=== PATIENT | female | born 2005 | race Caucasian/White ===

== ENCOUNTER → 2024-12-03 | Outpatient (CLI) | payer MEDICAID, SELFPAY ==
--- OUTSIDE RECORDS SUMMARY | 2024-10-17 09:13 | XMS RPT_ITS ---
Author Name Auto Generated Organization OHIP Care Team Providers Care Machine Setter Name Role Phone SAROJ MICHAUD Attending Unavailable KEILYMILENASAROJ M Primary Care Unavailable KEILY, SAROJ M Referring Unavailable KEILY, SAROJ M Primary Care Unavailable KEILYMILENA FLOWERSLENE M Attending Unavailable KEILY, SAROJ M Primary Care Unavailable KEILY, SAROJ M Referring Unavailable KEILY, SAROJ M Primary Care Unavailable KEILY, SAROJ M Referring Unavailable KEILY, SAROJ M Primary Care Unavailable EARLINE SMITH Referring Unavailable KEILY, SAROJ M Primary Care Unavailable MORAIMA AVALOS Attending Unavaila ble MILENA MICHAUDLENE M Referring Unavailable KEILY, SAROJ M Primary Care Unavailable EARLINE SMITH Attending Unavailable SRINI WHARTON Referring Unavail able MILENA MICHAUDLENE M Primary Care Unavailable KEILY, SAROJ M Primary Care Unavailable EARLINE SMITH Attending Unavailable PROBLEMS DATE TYPE CONDITION / CODE ATTENDING STATUS [facility] 09/03/2024 Active Follow Up / UNK(Unknown) EARLINE SMITH Active [facility] 07/17/2024 Active Syncope and jigar apse / R55(ICD-10) SAROJ MICHAUD Active [facility] 07/17/2024 Active Screening for li pid disorders / Z13.220(ICD-10) SAROJ MICHAUD Active [facility] 07/17/2024 Active Pain of toe of r ight foot / M79.674(ICD-10) SAROJ MICHAUD Active [facility] 07/17/2024 Active Wing[place] of toe / L84(ICD-10) ARNIE MICHAUD Active [facility] 07/06/2024 Active Menorrhagia with regular cycle / N92.0(ICD-10) NA Active [facility] 06/25/2024 Active Thyroid function study abnormality / R94.6(ICD-10) MORAIMA AVALOS Active [facility] 05/03/2024 Active Arthralgia of ri ght wrist / M25.531(ICD-10) NA [facility] 05/03/2024 Active Chronic pain of both knees / M25.561(ICD-10) NA Active [facility] 05/03/2024 Active Chronic pain of both knees / M25.562(ICD-10) NA [facility] 05/03/2024 Active Chronic pain of both knees / G89.29(ICD-10) [facility] 05/03/2024 Active Chronic bilatera l low back pain without sciatica / M54.50(ICD-10) [facility] 05/03/2024 Active Chronic bilatera l low back pain without sciatica / G89.29(ICD-10) NA [facility] 05/03/2024 Active Cold intolerance / R68.89(ICD-10) NA [facility] 05/03/2024 Active Fatigue, unspeci fied type / R53.83(ICD-10) NA [facility] 05/03/2024 Active Encounter for me reening for diabetes mellitus / Z13.1(ICD-10) [facility] 05/03/2024 Active Vitamin D defici ency / E55.9(ICD-10) NA [facility] 05/03/2024 Active Special screenin g examination for viral disease / Z11.59(ICD-10) NA [facility] 05/03/2024 Active Screening for HI V (human immunodeficiency virus) / Z11.4(ICD-10) NA [facility] 01/11/2024 Active Abnormal uterine bleeding (AUB) / N93.9(ICD-10) NA [facility] 01/11/2024 Active Dyspareunia, fem francesco / N94.10(ICD-10) NA [facility] 12/27/2023 Active Hemorrhage in ut erus / N93.9(ICD-10) NA [facility] PROCEDURES No Procedure Records Found RESULTS PROGRESS Observed: 10/17/2024 9:20 AM Status: COMPLETED Source: [facility] HNO ID: [id number] Author: JORGE A GARIBAY RN Service: ? Author Type: Registered Nurse Type: Progress Notes Filed: 10/18/2024 06:48 Note Text: UNIVERSAL PROTOCOL / SAFETY CHECKLIST Procedure to be performed: [facility]: TILT Sign in Communication: Completed Time Out: Team Confirms the Correct Patient, Correct Procedure, Correct Site and Site Marking, Correct Position (if applicable). Time: 09:35 STAFF: Adebayo Alanis Affirmation of Time Out: YES Sign Out Discussion: Completed Jorge A Garibay RN Orders placed 07/17/2024 by Saroj Michaud APRN CNP Allergies: Gluten Test done in consult with Saroj Michaud APRN CNP Procedure Start Time: 0940 Height 175.3 cm Weight 73.5 kg Patient fasting for 4 hours: Yes Support stockings taken off for procedure: Not applicable Pain Assessment: Patient states none Comfort Measures: Re-positioning and Added pillow for head/shoulders Pacemaker: No IV Placement: in by Jorge A Garibay RN Baseline: BP 104/65 HR 69 Pre-Max Tilt : 70 degrees 44 min BP 102/75 HR 123 Max Tilt: 70 degrees 45 min BP 100/71 HR 126 Note: Test was stopped due to end of protocol. See Final Report for Diagnosis. IV discontinued at 11:05 by Jorge A Garibay RN . Staff involved in procedure: Bella Stone RN. ; Jorge A Garibay RN Procedure Finish Time: 11:10 CNOV Observed: 10/17/2024 9:15 AM Status: COMPLETED Source: [facility] Office Visit (SYNCMN) ARMIDA PORRAS ([id number]) 3 F Date Time Provider Department 10/17/24 9:15 AM SYNCOPE OPD NURSE SYNCMN During your visit today, we recorded the following information about you: Jorge A Garibay RN 10/18/2024 6:48 AM Signed UNIVERSAL PROTOCOL / SAFETY CHECKLIST Procedure to be performed: [facility] Syncope and Autonomic Disorders: TILT Sign in Communication: Completed Time Out: Team Confirms the Correct Patient, Correct Procedure, Correct Site and Site Marking, Correct Position (if applicable). Time: 09:35 STAFF: Adebayo Alanis Affirmation of Time Out: YES Sign Out Discussion: Completed Jorge A Garibay RN Orders placed 07/17/2024 by Saroj Michaud APRN CNP Allergies: Gluten Test done in consult with Saroj Michaud APRN CNP Procedure Start Time: 939 Height 175.3 cm Weight 73.5 kg Patient fasting for 4 hours: Yes Support stockings taken off for procedure: Not applicable Pain Assessment: Patient states none Comfort Measures: Re-positioning and Added pillow for head/shoulders Pacemaker: No IV Placement: in by Jorge A Garibay RN Baseline: BP 104/65 HR 69 Pre-Max Tilt : 70 degrees 44 min BP 102/75 HR 123 Max Tilt: 70 degrees 45 min BP 100/71 HR 126 Note: Test was stopped due to end of protocol. See Final Report for Diagnosis. IV discontinued at 11:05 by Jorge A Garibay RN . Staff involved in procedure: Bella Stone RN. ; Jorge A Garibay RN Procedure Finish Time: 11:10 Allergies As of Date: 10/17/2024 Noted Allergy Reaction GLUTEN 10/10/2009 5 - Intolerance Date Reviewed: 09/03/2024 Reviewed by: Anthony Matthews MA - Fully Assessed Primary Visit Diagnosis:Syncope and collapse [R55] Order(s):SALINE LOCK DISCONTINUE [[id number]] Order #: [id number]: 1 INTERMITTENT PERIPHERAL DEVICE ([place]) [[id number]] Order #: [id number]: 1 Prescriptions as of 10/18/2024 - calcium phosphate dibas/vit D3 (VITAMIN D, WITH CALCIUM, ORAL) Take by mouth. - norgestimate 0.25 mg-ethinyl estradiol 35 mcg (SPRINTEC) 0.25-35 mg-mcg per tablet Take 1 tablet by mouth once daily. Problem List As Of Date: 10/17/2024 (None) Encounter Status:Closed by JORGE A GARIBAY on 10/18/24 PROGRESS Observed: 09/03/2024 2:47 PM Status: COMPLETED Source: [facility] Author: EARLINE SMITH APRN.CNM Service: ? Author Type: Roofing Apprentice Type: Progress Notes Filed: 09/16/2024 06:23 Note Text: CONTRACEPTION Armida Porras is a 19 year old who presents today for contraception. Patient's last menstrual period was 06/24/2024 (exact date).. HPI: Dysmenorrhea No Heavy menses No Irregular menses No Very happy with Sprintec and would like to continue. Decreased pain, decreased bleeding. Denies warning signs ACHES SUBJECTIVE Sexually active: Yes Smoking No Last PAP Method of control: oral contraceptives satisfactory Methods tried previously: oral contraceptives unsatisfactory Relevant Past Medical History: No relevant past medical history, Smoker NO, History of blood clots no, History of migraines no, History of CVA no, History of CAD no, History of hypertension no, History of abnormal vaginal bleeding no, History of liver disease no, History of diabetes no OB History Gravida0 Para0 Term0 Preterm0 AB0 Living0 SAB0 IAB0 Ectopic0 Multiple0 Live Births0 PAST MEDICAL HISTORY Diagnosis Date IBS (irritable bowel syndrome) No past surgical history on file. FAMILY HISTORY Problem Relation Age of Onset No Known Problems Mother No Known Problems Father No Known Problems Sister Breast Cancer Maternal Grandmother Cancer Maternal Grandfather Breast Cancer Paternal Grandmother Cancer Paternal Grandfather SOCIAL HISTORY Social History Tobacco Use Smoking status: Never Passive exposure: Never Smokeless tobacco: Never Vaping Use Vaping status: Never Used Substance Use Topics Alcohol use: Never Drug use: Never No past surgical history on file. Current Outpatient Medications Medication Sig magnesium citrate and oxide (MAGNESIUM CITRATE,MAG OXIDE ORAL) Take by mouth. (Patient not taking: Reported on 07/17/2024) calcium phosphate dibas/vit D3 (VITAMIN D, WITH CALCIUM, ORAL) Take by mouth. norgestimate 0.25 mg-ethinyl estradiol 35 mcg (SPRINTEC) 0.25-35 mg-mcg per tablet Take 1 tablet by mouth once daily. No current facility-administered medications for this visit. Allergies As of Date: 09/03/2024 Allergen Noted Reaction GLUTEN 10/10/2009 Intolerance Fully Assessed 07/17/2024 SENSITIVE EXAM: Sensitive exam not performed. OBJECTIVE: General Appearance: Well appearing, alert, in no acute distress, well-hydrated, well nourished. Skin: Color normal, Vascularity normal, No evidence of bleeding or bruising, No lesions noted, No edema, Temperature normal, Texture normal, Mobility and turgor normal, Nails normal without clubbing Neck: Supple, no adenopathy; thyroid symmetric, normal size, no bruits Lungs: clear to auscultation Heart: regular rate and rhythm Abdomen: soft, non-tender, no masses, no hepatosplenomegaly, and no lymphadenopathy ASSESSMENT/PLAN: 1. Encounter for surveillance of contraceptive pills - ICD9: V25.41, ICD10: Z30.41 (primary diagnosis) - discussed with patient on how to take OCP's. - counseled on benefits, risks and possible severe side effects of OCP's. - discussed need to use Condoms to help to prevent STD's including HIV etc. 2. Menorrhagia with regular cycle - ICD9: 626.2, ICD10: N92.0 -Much improved since starting Sprintec. Would like to continue. Earline Smith APRN.CNM CNOV Observed: 09/03/2024 2:45 PM Status: COMPLETED Source: [facility] Office Visit (OBGYWM) ARMIDA PORRAS ([id number]) 3 F Date Time Provider Department 09/03/24 2:45 PM EARLINE SMITH During your visit today, we recorded the following information about you: Blood pressure Weight Last Period 108/62 73.5 kg 08/16/24 Earline Smith APRN.CNM 09/16/2024 6:23 AM Signed CONTRACEPTION Armidamoises Preciadoyce is a 19 year old who presents today for contraception. Patient's last menstrual period was 06/24/2024 (exact date).. HPI: Dysmenorrhea No Heavy menses No Irregular menses No Very happy with Sprintec and would like to continue. Decreased pain, decreased bleeding. Denies warning signs ACHES SUBJECTIVE Sexually active: Yes Smoking No Last PAP Method of control: oral contraceptives satisfactory Methods tried previously: oral contraceptives unsatisfactory Relevant Past Medical History: No relevant past medical history, Smoker NO, History of blood clots no, History of migraines no, History of CVA no, History of CAD no, History of hypertension no, History of abnormal vaginal bleeding no, History of liver disease no, History of diabetes no OB History Gravida0 Para0 Term0 Preterm0 AB0 Living0 SAB0 IAB0 Ectopic0 Multiple0 Live Births0 PAST MEDICAL HISTORY Diagnosis Date IBS (irritable bowel syndrome) No past surgical history on file. FAMILY HISTORY Problem Relation Age of Onset No Known Problems Mother No Known Problems Father No Known Problems Sister Breast Cancer Maternal Grandmother Cancer Maternal Grandfather Breast Cancer Paternal Grandmother Cancer Paternal Grandfather SOCIAL HISTORY Social History Tobacco Use Smoking status: Never Passive exposure: Never Smokeless tobacco: Never Vaping Use Vaping status: Never Used Substance Use Topics Alcohol use: Never Drug use: Never No past surgical history on file. Current Outpatient Medications Medication Sig magnesium citrate and oxide (MAGNESIUM CITRATE,MAG OXIDE ORAL) Take by mouth. (Patient not taking: Reported on 07/17/2024) calcium phosphate dibas/vit D3 (VITAMIN D, WITH CALCIUM, ORAL) Take by mouth. norgestimate 0.25 mg-ethinyl estradiol 35 mcg (SPRINTEC) 0.25-35 mg-mcg per tablet Take 1 tablet by mouth once daily. No current facility-administered medications for this visit. Allergies As of Date: 09/03/2024 Allergen Noted Reaction GLUTEN 10/10/2009 Intolerance Fully Assessed 07/17/2024 SENSITIVE EXAM: Sensitive exam not performed. OBJECTIVE: General Appearance: Well appearing, alert, in no acute distress, well-hydrated, well nourished. Skin: Color normal, Vascularity normal, No evidence of bleeding or bruising, No lesions noted, No edema, Temperature normal, Texture normal, Mobility and turgor normal, Nails normal without clubbing Neck: Supple, no adenopathy; thyroid symmetric, normal size, no bruits Lungs: clear to auscultation Heart: regular rate and rhythm Abdomen: soft, non-tender, no masses, no hepatosplenomegaly, and no lymphadenopathy ASSESSMENT/PLAN: 1. Encounter for surveillance of contraceptive pills - ICD9: V25.41, ICD10: Z30.41 (primary diagnosis) - discussed with patient on how to take OCP's. - counseled on benefits, risks and possible severe side effects of OCP's. - discussed need to use Condoms to help to prevent STD's including HIV etc. 2. Menorrhagia with regular cycle - ICD9: 626.2, ICD10: N92.0 -Much improved since starting Sprintec. Would like to continue. Earline Smith APRN.CNM Allergies As of Date: 09/03/2024 Noted Allergy Reaction GLUTEN 10/10/2009 5 - Intolerance Date Reviewed: 09/03/2024 Reviewed by: Anthony Matthews MA - Fully Assessed Reason for Visit: Follow Up [171] Cmt: OCP - Sprintec Primary Visit Diagnosis:Encounter for surveillance of contraceptive pills [Z30.41] Other Visit Diagnosis:Menorrhagia with regular cycle [N92.0] Prescriptions as of 09/16/2024 - calcium phosphate dibas/vit D3 (VITAMIN D, WITH CALCIUM, ORAL) Take by mouth. - norgestimate 0.25 mg-ethinyl estradiol 35 mcg (SPRINTEC) 0.25-35 mg-mcg per tablet Take 1 tablet by mouth once daily. Problem List As Of Date: 09/03/2024 (None) Medications Discontinued During This Encounter Prescriptions - magnesium citrate and oxide (MAGNESIUM CITRATE,MAG OXIDE ORAL) (Discontinued) Reported on 07/17/2024 Encounter Status:Closed by EARLINE SMITH on 09/16/24 BAS METAB 1999 PNL SERPL Collected: 09/2024 11:28 AM Status: F Source: [facility] Order Comment: Specimen Type : BLOOD SPECIMEN Ordering Facility: [facility] Address: [address] [place] [address] TYPE CODE TESTS RESULT OUT OF RANGE REFERENCE UNITS LAB 2345-7(LOINC) Glucose SerPl-[facility] [address] 83 74-99 mg/dL Result Comment: The [place] Diabetes Association (ADA) provides guidance for cutoff values for fasting glucose and random glucose. The ADA defines fasting as no caloric intake for at least 8 hours. Fasting plasma glucose results between 100 to 125 mg/dL indicate increased risk for diabetes (prediabetes). Fasting plasma glucose results greater than or equal to 126 mg/dL meet the criteria for diagnosis of diabetes. In the absence of unequivocal hyperglycemia, results should be confirmed by repeat testing. In a patient with classic symptoms of hyperglycemia or hyperglycemic crisis, random plasma glucose results greater than or equal to 200 mg/dL meet the criteria for diagnosis of diabetes. Reference: Standards of Medical Care in Diabetes 2016, [place] [employer] Association. Diabetes Care. 2016.39(Suppl 1). LAB 3094-0(LOINC) BUN SerPl-mCnc 8 7-21 mg/ dL LAB 2160-0(LOINC) Creat SerPl-mCnc 0.96 0.58-0.96 mg/dL LAB 2951-2(LOINC) Sodium SerPl-sCnc 141 136-144 mmol/L LAB 2823-3(LOINC) Potassium SerPl-sCnc 4.4 3.7-5.1 mmol/L LAB 2075-0(LOINC) Chloride SerPl-sCnc 105 98-107 mmol/L LAB 2028-9(LOINC) CO2 SerPl-sCnc 25 22-30 mmo l/L LAB 81411-7(LOINC) Anion Gap SerPl-sCnc 11 8-15 mmol/L LAB 56017-1(LOINC) Calcium SerPl-mCnc 9.5 8.5-10.2 mg/dL LAB 21330-3(LOINC) Creatinine + eGFR Pnl SerPlBld 87 >=60 mL/min/1 .73m??? Result Comment: Estimated Gl omerular Filtration Rate (eGFR) is calculated using the 2020 CKD-EPI creatinine equation. This equation utilizes serum creatinine, sex, and age as parameters. The creatinine assay has traceable calibration to isotope dilution-mass spectrometry. Refer to KDIGO guidelines for clinical interpretation. In patients with unstable renal function, e.g. those with acute kidney injury, the eGFR may not accurately reflect actual GFR. Performed By: #### 84528-7, 16231-6 #### [facility] CLIA [id number] [address] [place], [place] [address], [place] [address] [place] LIPID 1996 PNL SERPL Collected: 025 11:28 AM Status: F Source: [facility] Order Comment: Specimen Type : BLOOD SPECIMEN Ordering Facility: [facility] Address: [address] [place] [address] TYPE CODE TESTS RESULT OUT OF RANGE REFERENCE UNITS LAB 2093-3(LOINC) Cholest SerPl-mCnc 152 <200 mg/dL Result Comment: <200 mg/dL, Desirable 200-239 mg/dL, Borderline high >239 mg/dL, High LAB 2571-8(LOINC) Trigl SerPl-mCnc 117 <150 mg/dL Result Comment: <150 mg/dL, Normal 150-199 mg/dL, Borderline high 200-499 mg/dL, High >499 mg/dL, Very high LAB 2085-9(LOINC) HDLc SerPl-mCnc 60 >39 mg/dL Result Comment: 40-59 mg/dL, Acceptable >59 mg/dL, High: Negative risk factor for coronary heart disease <40 mg/dL, Low: Positive risk factor for coronary heart disease LAB 2089-1(LOINC) LDLc SerPl-mCnc 71 <100 mg/dL Result Comment: <100 mg/dL, Optimal 100-129 mg/dL, Near optimal/above optimal 130-159 mg/dL, Borderline high 160-189 mg/dL, High >189 mg/dL, Very high Secondary prevention optimal LDL Cholesterol levels are recommended to be <70 mg/dL LDL cholesterol is calculated using the Kirkpatrick-NIH equation. LAB 95123-9(LOINC) NonHDLc SerPl-mCnc 92 <130 mg/dL Result Comment: <130 mg/dL, Optimal 130-159 mg/dL, Near optimal/above optimal 160-189 mg/dL, Borderline high 190-219 mg/dL, High >219 mg/dL, Very high Secondary prevention optimal non HDL Cholesterol levels are recommended to be <100 mg/dL LAB 08143-8(LOINC) VLDLc SerPl Calc-mCnc 18 <30 mg/dL LAB 9830-1(LOINC) Cholest/HDLc SerPl 2.53 <5.10 LAB 48003-8(LOINC) LDLc/HDLc SerPl 1.18 <2.54 Result Comment: Reference: 1. National Cholesterol Education Program ATP III Guideline At-A-Glance Quick Desk Reference: National Heart, Lung, and Blood Shiro. National Institutes of Health. 2001: NIH Publication No. 01-3305. 2. An International Atherosclerosis Society position paper: global recommendations for the management of dyslipidemia: executive summary, Atherosclerosis. 2014: 232(2):410-413. Cut Points from the Lipid Research Clinic's Prevalence Study for ages 20 to 24 years can be located in the following reference: Expert Panel on Integrated Guidelines for Cardiovascular Health and Risk Reduction in Children and Adolescents: National Heart, Lung and Blood Shiro. Pediatrics. 2011:128(Suppl 5):M153-433. LAB FT FASTING TIME 10 hrs Performed By: #### 12801-3, 63512-6 #### [facility] CLIA [id number] [address] [place] [address] [place] DEPRECATED HGB A1C BLD Collected: 08/11 11:28 AM Status: F Source: [facility] Order Comment: Specimen Type : BLOOD SPECIMEN Ordering Facility: [facility] Address: [address] [place] [address] TYPE CODE TESTS RESULT OUT OF RANGE REFERENCE UNITS LAB 4548-4(LOINC) HbA1c MFr Bld 5.1 4.3-5.6 % Result Comment: [place] Jennifer betes Association guidelines indicate that patients with HgbA1c in the range 5.7-6.4% are at increased risk for development of diabetes, and intervention by lifestyle modification may be beneficial. HgbA1c greater or equal to 6.5% is considered diagnostic of diabetes. LAB 75966-3(LOINC) Est. average glucose Bld gHb Est-mCnc 100 mg/dL Result Comment: eAG: (Estima jocelynn average glucose) is a calculated value from HgbA1c and is office services representative of the average blood glucose level in the last 2-3 month period. Performed By: #### 04032-0 # ### [facility] CLIA [id number] [address] [place] [address] [place] CNPN Observed: 08/02/2024 12:00 AM Status: COMPLETED Source: [facility] Telephone (AGINTMLW) ARMIDA PORRAS ([id number]) 3 F Date Time Provider Department 08/02/24 SAROJ MICHAUD AGINTMLDangelo During your visit today, we recorded the following information about you: Karishma Muñoz LPN 08/02/2024 8:01 AM Signed ----- Message from Gloria Beasley sent at 07/31/2024 1:50 PM EDT ----- Regarding: FW: 4CINSTITUTE/INTM AG LODI/SAROJ MICHAUD/CALLBACK ----- Message ----- From: Thom Zambrano Sent: 07/31/2024 12:55 PM EDT To: Roxie Magaña [employer] Pool; # Subject: 4CCAREN/NIKKIM AG LODI/SAROJ MICHAUD/CA# Subject Line Format: Medicine / Saroj Michaud APRN.ON AIR HOST / [Issue] Select Department Name For Pool Routing Assistance: FAMP AG LODI => AG FAMP/INTM LODI APPT CTR [facility] [[id number]] Patient: Armida Porras Date of : 2005 Primary Care Provider: Saroj Michaud APRN.CHARLEEN The reason I am contacting the office is: Call Back - Patient is requesting a call back from Saroj Michaud, about heart monitor. Person calling if other than patient: n/a Best contact number: [phone] Thank you, Tohm Zambrano July 31, 2024 12:51 PM Karishma Muñoz LPN 08/02/2024 8:03 AM Signed Left message for pt to call office. Review of chart does not look like pt has had heart monitor done yet. Karishma Muñoz LPN Allergies As of Date: 08/02/2024 Noted Allergy Reaction GLUTEN 10/10/2009 5 - Intolerance Date Reviewed: 07/17/2024 Reviewed by: Saroj Michaud APRN.ON AIR HOST - Fully Assessed Reason for Visit: Returning Patient's Call [408] Prescriptions as of 08/02/2024 - magnesium citrate and oxide (MAGNESIUM CITRATE,MAG OXIDE ORAL) Take by mouth. - calcium phosphate dibas/vit D3 (VITAMIN D, WITH CALCIUM, ORAL) Take by mouth. - norgestimate 0.25 mg-ethinyl estradiol 35 mcg (SPRINTEC) 0.25-35 mg-mcg per tablet Take 1 tablet by mouth once daily. Problem List As Of Date: 08/02/2024 (None) Encounter Status:Closed by KARISHMA MUÑOZ on 08/02/24 CNOV Observed: 07/17/2024 11:00 AM Status: COMPLETED Source: [facility] Office Visit (AGINTMLW) CHIQUITA,ARMIDA ([id number]) 3 F Date Time Provider Department 07/17/24 11:00 AM SAROJ MICHAUD AGINTMLW During your visit today, we recorded the following information about you: Temperature Pulse Blood pressure 97.8 degrees 71/minute 106/58 Saroj Michaud APRN.ON AIR HOST 07/18/2024 7:22 AM Signed This note was created using NoteWriter. Subjective Armida Porras is a 19 year old female here today for follow up on last ov. She reported cold feeling and joint pains. Hx anxiety, OCD and IBS. She had labs which revealed thyroid antibody elevation of 10, vit D 23.7. She did see endo. Dx hashimotos thyroiditis. Syncope: - Recurrent syncope since age 6. - Recent increase in frequency, with three episodes in the past week. - Typically occurs once every couple of months; more frequent during periods of illness or stress. - Episodes last 30 seconds to 1 minute, with complete loss of consciousness. - Associated with stress, illness, or exertion; sometimes occurs randomly. - No prior workup due to lack of insurance. - Denies palpitations or seizure activity during episodes. - Experiences tinnitus and scotomas post-episode, resolving within 30 seconds. - Able to sit down before losing consciousness in most cases. 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 - Recent lab work reviewed by tree scout; no abnormalities noted. - Reports cold intolerance and fatigue; unsure if related to thyroid condition. Foot Wart: - Persistent wart on the foot, treated with cryotherapy twice without resolution. - Located between toes; causes discomfort when wearing enclosed shoes. ALLERGIES Allergen Reactions Gluten Intolerance Current Outpatient Medications Medication Sig Dispense Refill magnesium citrate and oxide (MAGNESIUM CITRATE,MAG OXIDE ORAL) Take by mouth. calcium phosphate dibas/vit D3 (VITAMIN D, WITH CALCIUM, ORAL) Take by mouth. norgestimate 0.25 mg-ethinyl estradiol 35 mcg (SPRINTEC) 0.25-35 mg-mcg per tablet Take 1 tablet by mouth once daily. 84 tablet 3 No current facility-administered medications for this visit. There is no problem list on file for this patient. PAST MEDICAL HISTORY Diagnosis Date IBS (irritable bowel syndrome) No past surgical history on file. Social History Tobacco Use Smoking status: Never Passive exposure: Never Smokeless tobacco: Never Vaping Use Vaping status: Never Used Substance Use Topics Alcohol use: Never Drug use: Never Family History Problem Relation Age of Onset No Known Problems Mother No Known Problems Father No Known Problems Sister Breast Cancer Maternal Grandmother Cancer Maternal Grandfather Breast Cancer Paternal Grandmother Cancer Paternal Grandfather Review of Systems Constitutional: Positive for chills and fatigue. Negative for activity change, appetite change, diaphoresis, fever and unexpected weight change. Respiratory: Negative for cough, shortness of breath and wheezing. Cardiovascular: Negative for chest pain, palpitations and leg swelling. Musculoskeletal: Positive for arthralgias and back pain. Wrist, knee Skin: See HPI Neurological: Positive for dizziness, syncope and light-headedness. Negative for headaches. See HPI Lightheaded during episodes Hematological: Does not bruise/bleed easily. Psychiatric/Behavioral: Negative for dysphoric mood. The patient is nervous/anxious. Anxiety at times with school Eyes: (+) visual disturbances Ears/Nose/Mouth/Throat: (+) tinnitus Cardiovascular: (-) palpitations Musculoskeletal: (+) arthralgias (right wrist, knees, low back) Neurological: (+) dizziness, (+) syncope Endocrine: (+) cold intolerance Skin: (+) wart (right foot) Objective 07/17/24 1120 07/17/24 1123 07/17/24 1125 07/17/24 1126 BP: 106/58 Orthostatic BP: 104/52 100/64 96/58 BP Site: Right Arm Right Arm Right Arm BP Position: Supine Sitting Standing BP Cuff Size: Regular Adult Regular Adult Regular Adult Pulse: 71 Orthostatic Pulse: 56 66 70 Temp: 36.6 ?C (97.8 ?F) SpO2: 98% LMP 06/24/2024 (Exact Date) Physical Exam Vitals and nursing note reviewed. Constitutional: General: She is not in acute distress. Appearance: She is not ill-appearing. HENT: Head: Normocephalic and atraumatic. Nose: No congestion or rhinorrhea. Cardiovascular: Rate and Rhythm: Normal rate and regular rhythm. Pulses: Normal pulses. Heart sounds: Normal heart sounds, S1 normal and S2 normal. No murmur heard. Pulmonary: Effort: Pulmonary effort is normal. No respiratory distress. Breath sounds: Normal breath sounds. No decreased breath sounds, wheezing, rhonchi or rales. Musculoskeletal: Right lower leg: No edema. Left lower leg: No edema. Skin: General: Skin is warm and dry. Neurological: Mental Status: She is alert and oriented to person, place, and time. Psychiatric: Mood and Affect: Mood normal. Behavior: Behavior normal. Thought Content: Thought content normal. Judgment: Judgment normal. Latest Ref Rng 05/03/2024 07/06/2024 WBC 3.70 - 11.00 k/uL 3.72 RBC 3.90 - 5.20 m/uL 4.66 Hemoglobin 11.5 - 15.5 g/dL 12.8 Hematocrit 36.0 - 46.0 % 39.1 MCV 80.0 - 100.0 fL 83.9 MCH 26.0 - 34.0 pg 27.5 MCHC 30.5 - 36.0 g/dL 32.7 RDW-CV 11.5 - 15.0 % 12.9 Platelet Count 150 - 400 k/uL 260 MPV 9.0 - 12.7 fL 10.1 Neut% % 51.0 Abs Neut (ANC) 1.45 - 7.50 k/uL 1.90 Lymph% % 37.9 Abs Lymph 1.00 - 4.00 k/uL 1.41 [place]% % 8.6 Abs [place] <0.87 k/uL 0.32 Eosin% % 2.2 Abs Eosin <0.46 k/uL 0.08 Baso% % 0.0 Abs Baso <0.11 k/uL <0.03 Immature Gran % % 0.3 IMMATURE GRANS (ABS) <0.10 k/uL <0.03 NRBC /100 WBC 0.0 Absolute nRBC <0.01 k/uL <0.01 DTYPE Auto Protein, Total 6.3 - 8.0 g/dL 7.0 Albumin 3.9 - 4.9 g/dL 4.5 Calcium 8.5 - 10.2 mg/dL 9.0 Bilirubin, Total 0.2 - 1.3 mg/dL 0.7 Alkaline Phosphatase 34 - 123 U/L 50 AST 13 - 35 U/L 15 ALT 7 - 38 U/L 18 Glucose 74 - 99 mg/dL 77 BUN 7 - 21 mg/dL 12 Creatinine 0.58 - 0.96 mg/dL 0.95 Sodium 136 - 144 mmol/L 139 Potassium 3.7 - 5.1 mmol/L 3.9 Chloride 98 - 107 mmol/L 103 CO2 22 - 30 mmol/L 26 Anion Gap 8 - 15 mmol/L 10 eGFR >=60 mL/min/1.73m? 88 HIV 12 Combo (Ag/Ab) Nonreactive Nonreactive HIV 1/2 Ab -- HIV Interpretation -- Iron 41 - 186 ug/dL 69 TIBC 232 - 386 ug/dL 459 (H) Transferrin Saturation 15.0 - 57.0 % 15.0 CRP <0.9 mg/dL <0.3 TSH 0.510 - 4.300 mIU/L 2.140 T3 79 - 165 ng/dL 98 Free T4 0.9 - 1.7 ng/dL 1.1 THYROID PEROXIDASE ANTIBODY <5.6 IU/mL 10.0 (H) Vitamin D 25 Hydroxy >=30.0 ng/mL 23.7 (L) Hep C Antibody IA Nonreactive Nonreactive Prolactin 4.4 - 33.8 ng/mL 23.2 Ferritin 14.7 - 205.1 ng/mL 15.4 WSR 0 - 20 mm/hr 2 Legend: (H) High (L) Low 1. Syncope and collapse (R55) - Recurrent episodes of syncope since age 6, with recent increase in frequency; episodes typically last 30 seconds to 1 minute with associated tinnitus and transient visual disturbances. - Ordered Tilt Table Test to evaluate for orthostatic hypotension or autonomic dysfunction. - Ordered 30-day event monitor to assess for potential cardiac arrhythmias. - Advised patient to maintain adequate hydration. 2. 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 - Educated patient on the chronic nature of the condition and the importance of annual monitoring. 3. Pain of toe of right foot (M79.674) 4. Wingina of toe (L84) - Exam reveals a lesion consistent with a corn on the right foot, likely due to pressure from footwear. - Referred to podiatry for further evaluation and removal. 5. Screening for lipid disorders (Z13.220) - Ordered fasting lipid panel. Saroj Michaud APRN.CHARLEEN I spent a total of 30 minutes on the date of the service which included preparing to see the patient, [id number] patient care, completing clinical documentation, obtaining and/or reviewing separately obtained history, performing a medically appropriate examination, counseling and educating the patient/family/caregiver, and ordering medications, tests, or procedures. Allergies As of Date: 07/17/2024 Noted Allergy Reaction GLUTEN 10/10/2009 5 - Intolerance Date Reviewed: 07/17/2024 Reviewed by: Saroj Michaud APRN.[employer] - Fully Assessed Reason for Visit: pots symptoms [Other] Cmt: Follow up from last appointment. Wart on right foot for the last month and a half Primary Visit Diagnosis:Syncope and collapse [R55] Other Visit Diagnoses:Noe's thyroiditis [E06.3] Pain of toe of right foot [M79.674] Wingina of toe [L84] Screening for lipid disorders [Z13.220] Order(s):TILT TABLE EVALUATION [56751DPA] Order #: [id number]: 1 EVENT MONITOR [6914920] Order #: [id number]: 1 LIPID PANEL, FASTING [SQLIPB] Order #: [id number] FUTURE BASIC METABOLIC PANEL [SQBMP] Order #: [id number] FUTURE HEMOGLOBIN A1C [WXSQV1V] Order #: [id number] FUTURE CONSULT TO PODIATRY [9034] Order #: [id number]: 1 FUTURE Prescriptions as of 07/18/2024 - magnesium citrate and oxide (MAGNESIUM CITRATE,MAG OXIDE ORAL) Take by mouth. - calcium phosphate dibas/vit D3 (VITAMIN D, WITH CALCIUM, ORAL) Take by mouth. - norgestimate 0.25 mg-ethinyl estradiol 35 mcg (SPRINTEC) 0.25-35 mg-mcg per tablet Take 1 tablet by mouth once daily. Problem List As Of Date: 07/17/2024 (None) Encounter Status:Closed by SAROJ MICHAUD on 07/18/24 PROGRESS Observed: 07/17/2024 11:00 AM Status: COMPLETED [facility] [id number] Author: SAROJ MICHAUD APRN.[facility] Service: ? Author Type: Nurse Practitioner Type: Progress Notes Filed: 07/18/2024 07:22 Note Text: This note was created using NoteWriter. Subjective Armida Porras is a 19 year old female here today for follow up on last ov. She reported cold feeling and joint pains. Hx anxiety, OCD and IBS. She had labs which revealed thyroid antibody elevation of 10, vit D 23.7. She did see endo. Dx hashimotos thyroiditis. Syncope: - Recurrent syncope since age 6. - Recent increase in frequency, with three episodes in the past week. - Typically occurs once every couple of months; more frequent during periods of illness or stress. - Episodes last 30 seconds to 1 minute, with complete loss of consciousness. - Associated with stress, illness, or exertion; sometimes occurs randomly. - No prior workup due to lack of insurance. - Denies palpitations or seizure activity during episodes. - Experiences tinnitus and scotomas post-episode, resolving within 30 seconds. - Able to sit down before losing consciousness in most cases. 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 - Recent lab work reviewed by tree [facility]; no abnormalities noted. - Reports cold intolerance and fatigue; unsure if related to thyroid condition. Foot Wart: - Persistent wart on the foot, treated with cryotherapy twice without resolution. - Located between toes; causes discomfort when wearing enclosed shoes. ALLERGIES Allergen Reactions Gluten Intolerance Current Outpatient Medications Medication Sig Dispense Refill magnesium citrate and oxide (MAGNESIUM CITRATE,MAG OXIDE ORAL) Take by mouth. calcium phosphate dibas/vit D3 (VITAMIN D, WITH CALCIUM, ORAL) Take by mouth. norgestimate 0.25 mg-ethinyl estradiol 35 mcg (SPRINTEC) 0.25-35 mg-mcg per tablet Take 1 tablet by mouth once daily. 84 tablet 3 No current facility-administered medications for this visit. There is no problem list on file for this patient. PAST MEDICAL HISTORY Diagnosis Date IBS (irritable bowel syndrome) No past surgical history on file. Social History Tobacco Use Smoking status: Never Passive exposure: Never Smokeless tobacco: Never Vaping Use Vaping status: Never Used Substance Use Topics Alcohol use: Never Drug use: Never Family History Problem Relation Age of Onset No Known Problems Mother No Known Problems Father No Known Problems Sister Breast Cancer Maternal Grandmother Cancer Maternal Grandfather Breast Cancer Paternal Grandmother Cancer Paternal Grandfather Review of Systems Constitutional: Positive for chills and fatigue. Negative for activity change, appetite change, diaphoresis, fever and unexpected weight change. Respiratory: Negative for cough, shortness of breath and wheezing. Cardiovascular: Negative for chest pain, palpitations and leg swelling. Musculoskeletal: Positive for arthralgias and back pain. Wrist, knee Skin: See HPI Neurological: Positive for dizziness, syncope and light-headedness. Negative for headaches. See HPI Lightheaded during episodes Hematological: Does not bruise/bleed easily. Psychiatric/Behavioral: Negative for dysphoric mood. The patient is nervous/anxious. Anxiety at times with school Eyes: (+) visual disturbances Ears/Nose/Mouth/Throat: (+) tinnitus Cardiovascular: (-) palpitations Musculoskeletal: (+) arthralgias (right wrist, knees, low back) Neurological: (+) dizziness, (+) syncope Endocrine: (+) cold intolerance Skin: (+) wart (right foot) Objective 07/17/24 1120 07/17/24 1123 07/17/24 1125 07/17/24 1126 BP: 106/58 Orthostatic BP: 104/52 100/64 96/58 BP Site: Right Arm Right Arm Right Arm BP Position: Supine Sitting Standing BP Cuff Size: Regular Adult Regular Adult Regular Adult Pulse: 71 Orthostatic Pulse: 56 66 70 Temp: 36.6 ?C (97.8 ?F) SpO2: 98% LMP 06/24/2024 (Exact Date) Physical Exam Vitals and nursing note reviewed. Constitutional: General: She is not in acute distress. Appearance: She is not ill-appearing. HENT: Head: Normocephalic and atraumatic. Nose: No congestion or rhinorrhea. Cardiovascular: Rate and Rhythm: Normal rate and regular rhythm. Pulses: Normal pulses. Heart sounds: Normal heart sounds, S1 normal and S2 normal. No murmur heard. Pulmonary: Effort: Pulmonary effort is normal. No respiratory distress. Breath sounds: Normal breath sounds. No decreased breath sounds, wheezing, rhonchi or rales. Musculoskeletal: Right lower leg: No edema. Left lower leg: No edema. Skin: General: Skin is warm and dry. Neurological: Mental Status: She is alert and oriented to person, place, and time. Psychiatric: Mood and Affect: Mood normal. Behavior: Behavior normal. Thought Content: Thought content normal. Judgment: Judgment normal. Latest Ref Rng 05/03/2024 07/06/2024 WBC 3.70 - 11.00 k/uL 3.72 RBC 3.90 - 5.20 m/uL 4.66 Hemoglobin 11.5 - 15.5 g/dL 12.8 Hematocrit 36.0 - 46.0 % 39.1 MCV 80.0 - 100.0 fL 83.9 MCH 26.0 - 34.0 pg 27.5 MCHC 30.5 - 36.0 g/dL 32.7 RDW-CV 11.5 - 15.0 % 12.9 Platelet Count 150 - 400 k/uL 260 MPV 9.0 - 12.7 fL 10.1 Neut% % 51.0 Abs Neut (ANC) 1.45 - 7.50 k/uL 1.90 Lymph% % 37.9 Abs Lymph 1.00 - 4.00 k/uL 1.41 [place]% % 8.6 Abs [place] <0.87 k/uL 0.32 Eosin% % 2.2 Abs Eosin <0.46 k/uL 0.08 Baso% % 0.0 Abs Baso <0.11 k/uL <0.03 Immature Gran % % 0.3 IMMATURE GRANS (ABS) <0.10 k/uL <0.03 NRBC /100 WBC 0.0 Absolute nRBC <0.01 k/uL <0.01 DTYPE Auto Protein, Total 6.3 - 8.0 g/dL 7.0 Albumin 3.9 - 4.9 g/dL 4.5 Calcium 8.5 - 10.2 mg/dL 9.0 Bilirubin, Total 0.2 - 1.3 mg/dL 0.7 Alkaline Phosphatase 34 - 123 U/L 50 AST 13 - 35 U/L 15 ALT 7 - 38 U/L 18 Glucose 74 - 99 mg/dL 77 BUN 7 - 21 mg/dL 12 Creatinine 0.58 - 0.96 mg/dL 0.95 Sodium 136 - 144 mmol/L 139 Potassium 3.7 - 5.1 mmol/L 3.9 Chloride 98 - 107 mmol/L 103 CO2 22 - 30 mmol/L 26 Anion Gap 8 - 15 mmol/L 10 eGFR >=60 mL/min/1.73m? 88 HIV 12 Combo (Ag/Ab) Nonreactive Nonreactive HIV 1/2 Ab -- HIV Interpretation -- Iron 41 - 186 ug/dL 69 TIBC 232 - 386 ug/dL 459 (H) Transferrin Saturation 15.0 - 57.0 % 15.0 CRP <0.9 mg/dL <0.3 TSH 0.510 - 4.300 mIU/L 2.140 T3 79 - 165 ng/dL 98 Free T4 0.9 - 1.7 ng/dL 1.1 THYROID PEROXIDASE ANTIBODY <5.6 IU/mL 10.0 (H) Vitamin D 25 Hydroxy >=30.0 ng/mL 23.7 (L) Hep C Antibody IA Nonreactive Nonreactive Prolactin 4.4 - 33.8 ng/mL 23.2 Ferritin 14.7 - 205.1 ng/mL 15.4 WSR 0 - 20 mm/hr 2 Legend: (H) High (L) Low 1. Syncope and collapse (R55) - Recurrent episodes of syncope since age 6, with recent increase in frequency; episodes typically last 30 seconds to 1 minute with associated tinnitus and transient visual disturbances. - Ordered Tilt Table Test to evaluate for orthostatic hypotension or autonomic dysfunction. - Ordered 30-day event monitor to assess for potential cardiac arrhythmias. - Advised patient to maintain adequate hydration. 2. 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 - Educated patient on the chronic nature of the condition and the importance of annual monitoring. 3. Pain of toe of right foot (M79.674) 4. Wingina of toe (L84) - Exam reveals a lesion consistent with a corn on the right foot, likely due to pressure from footwear. - Referred to podiatry for further evaluation and removal. 5. Screening for lipid disorders (Z13.220) - Ordered fasting lipid panel. Saroj Michaud APRN.CHARLEEN I spent a total of 30 minutes on the date of the service which included preparing to see the patient, [id number] patient care, completing clinical documentation, obtaining and/or reviewing separately obtained history, performing a medically appropriate examination, counseling and educating the patient/family/caregiver, and ordering medications, tests, or procedures. CBC W AUTO DIFF BLD Collected: 07/06/2024 12:02 PM S tatus: F Source: [facility] Order Comment: Specimen Type : BLOOD SPECIMEN Ordering Facility: [facility] Address: [address] [place] [address] TYPE CODE TESTS RESULT OUT OF RANGE REFERENCE UNITS LAB 6690-2(LOINC) WBC # Bld Auto 3.72 3.70-11.00 k/uL LAB 789-8(LOINC) RBC # Bld Auto 4.66 3.90-5.20 m/ uL LAB 718-7(LOINC) Hgb Bld-mCnc 12.8 11.5-15.5 g/dL LAB 4544-3(LOINC) Hct VFr Bld Auto 39.1 36.0-46.0 % LAB 787-2(LOINC) MCV RBC Auto 83.9 80.0-100.0 fL LAB 785-6(LOINC) MCH RBC Qn Auto 27.5 26.0-34.0 p g LAB 786-4([facility]) MCHC RBC Auto-mCnc 32.7 30.5-36.0 g/dL LAB 92828-4([facility]) RDW RBC-Rto 12.9 11.5-15.0 % LAB 777-3([facility]) Platelet # Bld Auto 260 150-400 k/uL LAB 04240-1([facility]) PMV Bld Auto 10.1 9.0-12.7 fL LAB 770-8([facility]) Neutrophils/leuk NFr Bld Auto 51.0 % LAB 751-8([facility]) Neutrophils # Bld Auto 1.90 1.45-7.50 k/uL LAB 736-9([facility]) Lymphocytes/leuk NFr Bld Auto 37.9 % LAB 731-0([facility]) Lymphocytes # Bld Auto 1.41 1.00-4.00 k/uL LAB 5905-5([facility]) Monocytes/leuk NFr Bld Auto 8.6 % LAB 742-7([facility]) Monocytes # Bld Auto 0.32 <0.87 k/uL LAB 713-8([facility]) Eosinophil/leuk NFr Bld Auto 2.2 % LAB 711-2([facility]) Eosinophil # Bld Auto 0.08 <0.46 k/uL LAB 706-2([facility]) Basophils/leuk NFr Bld Auto 0.0 % LAB 704-7([facility]) Basophils # Bld Auto <0.03 <0.11 k/uL LAB 26862-9([facility]) Imm Granulocytes/rosie k NFr Bld Auto 0.3 % LAB 26289-5([facility]) Imm Granulocytes # Bld Auto <0.03 <0.10 k/uL LAB 18972-3([facility]) nRBC/100 WBC Bld-Rto 0.0 /100 WBC LAB 771-6([facility]) nRBC # Bld Auto <0.01 <0.01 k/u L LAB 97530-0([facility]) Differential method Bld Auto Performed By: #### 70785-0, 4537-7 #### [facility] CLIA [id number] [address] [id number] [address] [place] ESR BLD QN WESTRGRN Collected: 07/07/19 12:02 PM Status: F Source: [facility] Comment: Specimen Type : BLOOD SPECIMEN Ordering Facility: [facility] Address: [address] [place] [address] TYPE CODE TESTS RESULT OUT OF RANGE REFERENCE UNITS LAB 4537-7(LOINC) ESR Bld Qn Westrgrn 2 0-20 mm/hr Performed By: #### 58480-6, 4537-7 #### [facility] CLIA [id number] [address] [place] [address] [place] IRON+TIBC PNL SERPL Collected: 07/07/19 12:02 PM Status: F Source: [facility] Comment: Specimen Type : BLOOD SPECIMEN Ordering Facility: [facility] Address: [address] [place] [address] TYPE CODE TESTS RESULT OUT OF RANGE REFERENCE UNITS LAB 2498-4(LOINC) Iron SerPl-mCnc 69 41-186 ug/dL LAB 2500-7(LOINC) TIBC SerPl-mCnc 459 High 232-386 ug/dL LAB 16767-6(LOINC) Iron/TIBC SerPl-sRto 15.0 15.0-57.0 % Performed By: #### 2842-3, 2 276-4, 99517-0 #### [facility] CLIA [id number] [address] [place] [address] [place] FERRITIN SERPL-MCNC Collected: 07/07/19 12:02 PM Status: F Source: [facility] Comment: Specimen Type : BLOOD SPECIMEN Ordering Facility: [facility] Address: [address] [place] [address] TYPE CODE TESTS RESULT OUT OF RANGE REFERENCE UNITS LAB 2276-4(LOINC) Ferritin SerPl-mCnc 15.4 14.7-205.1 ng/mL Performed By: #### 2842-3, 2 276-4, 76613-2 #### [facility] CLIA [id number] [address] [place] [address] PROLACTIN SERPL-MCNC Collected: 025 12:02 PM Status: F Source: [facility] Order Comment: Specimen Type : BLOOD SPECIMEN Ordering Facility: [facility] Address: [address] [place] [address] TYPE CODE TESTS RESULT OUT OF RANGE REFERENCE UNITS LAB 2842-3(LOINC) Prolactin SerPl-mCnc 23.2 4.4-33.8 ng/mL Result Comment: Prolactin te st is performed using the [employer] Electrochemiluminescence Immunoassay method. Results obtained with different methods or kits cannot be used interchangeably. Performed By: #### 2842-3, 2 276-4, 03537-6 #### [facility] CLIA [id number] [address] [place] [address] PROGRESS Observed: 06/25/2024 8:20 AM Status: COMPLETED Source: [facility] HNO ID: [id number] Author: MORAIMA AVALOS MD Service: ? Author Type: Physician Type: Progress Notes Filed: 06/25/2024 08:50 Note Text: [facility] Initial Clinic Visit Note CONSULTING PROVIDER: Saroj Michaud APRN. [employer] My final recommendations will be communicated back to the requesting provider by way of shared Medical record or a letter via [place] mail Subjective: Armida Porras is a 19 year old female presenting for abnormal thyroid labs She is accompanied by her room mate Although she could not initially tell why thyroid labs were drawn, after I discussed thyroid symptoms, she does report cold intolerance and irregular cycles She denied nipple discharge, along with cycle irregularity. Seeing OBGYN who is ordering labs No family hx of thyroid or autoimmune conditions known REVIEW OF SYSTEMS: 10 point ROS was reviewed and negative unless indicated in the HPI ALLERGIES: ALLERGIES Allergen Reactions Gluten Intolerance MEDICATIONS: Current Outpatient Medications on File Prior to Visit Medication Sig magnesium citrate and oxide (MAGNESIUM CITRATE,MAG OXIDE ORAL) Take by mouth. calcium phosphate dibas/vit D3 (VITAMIN D, WITH CALCIUM, ORAL) Take by mouth. norgestimate 0.25 mg-ethinyl estradiol 35 mcg (SPRINTEC) 0.25-35 mg-mcg per tablet Take 1 tablet by mouth once daily. No current facility-administered medications on file prior to visit. PAST MEDICAL HISTORY: PAST MEDICAL HISTORY Diagnosis Date IBS (irritable bowel syndrome) PAST SURGICAL HISTORY: History reviewed. No pertinent surgical history. FAMILY HISTORY: FAMILY HISTORY Problem Relation Age of Onset No Known Problems Mother No Known Problems Father No Known Problems Sister Breast Cancer Maternal Grandmother Cancer Maternal Grandfather Breast Cancer Paternal Grandmother Cancer Paternal Grandfather SOCIAL HISTORY: Social History Tobacco Use Smoking status: Never Passive exposure: Never Smokeless tobacco: Never Vaping Use Vaping status: Never Used Substance Use Topics Alcohol use: Never Drug use: Never PHYSICAL EXAM: BP 98/64 (BP Site: Right Arm, BP Position: Sitting, BP Cuff Size: Regular Adult) Pulse (!) 52 Temp 37 ?C (98.6 ?F) (Temporal Artery) Resp 12 Ht 175.3 cm (5' 9) Wt 72.5 kg (159 lb 12.8 oz) LMP 06/24/2024 (Exact Date) SpO2 99% BMI 23.60 kg/m? Last 3 Encounter Wt Readings: Date: Wt: 06/25/2024 72.5 kg (159 lb 12.8 oz) 05/03/2024 71.8 kg (158 lb 6.4 oz) 05/02/2024 71.8 kg (158 lb 6.4 oz) General: Alert and oriented x3, no acute distress Eyes: Anicteric sclera. Extraocular movements are intact. No lid lag or proptosis Neck supple, no cervical lymphadenopathy Thyroid: normal size, normal texture, no palpable nodules Lungs: Breathing unlabored on room air Heart regular rate and rhythm Musculoskeletal: Muscular strength intact, No joint swelling, deformity, or tenderness Neuro: Gait normal. Abdomen: deferred Extremities: without edema, no deformities, no treors Skin: no rashes/ erythema LAB: TSH Date Value Ref Range Status 05/03/2024 2.140 0.510 - 4.300 mIU/L Final Comment: If the patient is , TSH reference range varies by gestational period: First Trimester (weeks 9-12): 0.180-2.990 mIU/L Second Trimester: 0.110-3.980 mIU/L Third Trimester: 0.480-4.710 mIU/L Chandana Coates et al. A Practical Approach for the Verifications and Determination of Site- and Trimester-Specific Reference Intervals for Thyroid Function tests in . Thyroid, 2019:29:3:412-420. Nas Trejo, et al. 2017 Guidelines of the [place] [employer] for the Diagnosis and Management of Thyroid Disease during and the . Thyroid, 2017:27:3:315-389. Free T4 Date Value Ref Range Status 05/03/2024 1.1 0.9 - 1.7 ng/dL Final Latest Ref Rng 05/03/2024 TSH 0.510 - 4.300 mIU/L 2.140 T3 79 - 165 ng/dL 98 Free T4 0.9 - 1.7 ng/dL 1.1 THYROID PEROXIDASE ANTIBODY <5.6 IU/mL 10.0 (H) Legend: (H) High ASSESSMENT/PLAN: Noe's thyroiditis with Euthyroidism: I discussed that this is a type of autoimmune thyroid disease in which the immune system attacks and destroys the thyroid gland. Pathophysiology and natural course of the condition discussed. The thyroid helps set the rate of metabolism, which is the rate at which the body uses energy. Noe's, may in the long run, stop the gland from making enough thyroid hormones for the body to work the way it should. It is the most common thyroid disease in the [place] I also reviewed that we will not be able to predict when the thyroid function will become abnormal and hence suggested checking thyroid labs annually, or sooner if new symptoms concerning for hypothyroidism occur which include fatigue, depression, further weight gain, forgetfulness, muscle weakness, puffy face, dry skin and hair, constipation, muscle cramps, and increased menstrual flow. Some patients have major swelling of the thyroid gland in the front of the neck, called goiter. Reviewed her current symptoms are less likely due to thyroid and there is no indication for intervention She is seeing OBGYN who are evaluating irregular cycles. She is advised to return if her thyroid becomes abnormal in future if she or her PCPprefers her to see Endocrine for management Medical Decision Making: Problems: Moderate: New problem with uncertain prognosis Data: Unique test result(s) reviewed: 3+ Independent interpretation of test from other physician/QHCP Medical Decision Making Level: 4 - Moderate Moraima Avalos MD Endocrinology Associate Staff [facility] AND Surgery [facility] Endocrinology and Metabolism Shiro [phone] CNOV Observed: 06/25/2024 8:00 AM Status: COMPLETED Source: [facility] Office Visit (ENWSTR) ARMIDA PORRAS ([id number]) 3 F Date Time Provider Department 06/25/24 8:00 AM MORAIMA AVALOS ENWSTR During your visit today, we recorded the following information about you: Temperature Pulse Respiration Blood pressure 98.6 degrees 52/minute 12/minute 98/64 Weight Height Last Period 72.5 kg 1.753 m 06/24/24 Moraima Avalos MD 06/25/2024 8:50 AM Addendum [facility] Initial Clinic Visit Note CONSULTING PROVIDER: Saroj Michaud APRN. ON AIR HOST My final recommendations will be communicated back to the requesting provider by way of shared Medical record or a letter via [place] mail Subjective: Armida Porras is a 19 year old female presenting for abnormal thyroid labs She is accompanied by her room mate Although she could not initially tell why thyroid labs were drawn, after I discussed thyroid symptoms, she does report cold intolerance and irregular cycles She denied nipple discharge, along with cycle irregularity. Seeing OBGYN who is ordering labs No family hx of thyroid or autoimmune conditions known REVIEW OF SYSTEMS: 10 point ROS was reviewed and negative unless indicated in the HPI ALLERGIES: ALLERGIES Allergen Reactions Gluten Intolerance MEDICATIONS: Current Outpatient Medications on File Prior to Visit Medication Sig magnesium citrate and oxide (MAGNESIUM CITRATE,MAG OXIDE ORAL) Take by mouth. calcium phosphate dibas/vit D3 (VITAMIN D, WITH CALCIUM, ORAL) Take by mouth. norgestimate 0.25 mg-ethinyl estradiol 35 mcg (SPRINTEC) 0.25-35 mg-mcg per tablet Take 1 tablet by mouth once daily. No current facility-administered medications on file prior to visit. PAST MEDICAL HISTORY: PAST MEDICAL HISTORY Diagnosis Date IBS (irritable bowel syndrome) PAST SURGICAL HISTORY: History reviewed. No pertinent surgical history. FAMILY HISTORY: FAMILY HISTORY Problem Relation Age of Onset No Known Problems Mother No Known Problems Father No Known Problems Sister Breast Cancer Maternal Grandmother Cancer Maternal Grandfather Breast Cancer Paternal Grandmother Cancer Paternal Grandfather SOCIAL HISTORY: Social History Tobacco Use Smoking status: Never Passive exposure: Never Smokeless tobacco: Never Vaping Use Vaping status: Never Used Substance Use Topics Alcohol use: Never Drug use: Never PHYSICAL EXAM: BP 98/64 (BP Site: Right Arm, BP Position: Sitting, BP Cuff Size: Regular Adult) Pulse (!) 52 Temp 37 ?C (98.6 ?F) (Temporal Artery) Resp 12 Ht 175.3 cm (5' 9) Wt 72.5 kg (159 lb 12.8 oz) LMP 06/24/2024 (Exact Date) SpO2 99% BMI 23.60 kg/m? Last 3 Encounter Wt Readings: Date: Wt: 06/25/2024 72.5 kg (159 lb 12.8 oz) 05/03/2024 71.8 kg (158 lb 6.4 oz) 05/02/2024 71.8 kg (158 lb 6.4 oz) General: Alert and oriented x3, no acute distress Eyes: Anicteric sclera. Extraocular movements are intact. No lid lag or proptosis Neck supple, no cervical lymphadenopathy Thyroid: normal size, normal texture, no palpable nodules Lungs: Breathing unlabored on room air Heart regular rate and rhythm Musculoskeletal: Muscular strength intact, No joint swelling, deformity, or tenderness Neuro: Gait normal. Abdomen: deferred Extremities: without edema, no deformities, no treors Skin: no rashes/ erythema LAB: TSH Date Value Ref Range Status 05/03/2024 2.140 0.510 - 4.300 mIU/L Final Comment: If the patient is , TSH reference range varies by gestational period: First Trimester (weeks 9-12): 0.180-2.990 mIU/L Second Trimester: 0.110-3.980 mIU/L Third Trimester: 0.480-4.710 mIU/L Chandana Coates et al. A Practical Approach for the Verifications and Determination of Site- and Trimester-Specific Reference Intervals for Thyroid Function tests in . Thyroid, 2019:29:3:412-420. Nas Trejo et al. 2017 Guidelines of the [place] Thyroid Association for the Diagnosis and Management of Thyroid Disease during and the . Thyroid, 2017:27:3:315-389. Free T4 Date Value Ref Range Status 05/03/2024 1.1 0.9 - 1.7 ng/dL Final Latest Ref Rng 05/03/2024 TSH 0.510 - 4.300 mIU/L 2.140 T3 79 - 165 ng/dL 98 Free T4 0.9 - 1.7 ng/dL 1.1 THYROID PEROXIDASE ANTIBODY <5.6 IU/mL 10.0 (H) Legend: (H) High ASSESSMENT/PLAN: Noe's thyroiditis with Euthyroidism: I discussed that this is a type of autoimmune thyroid disease in which the immune system attacks and destroys the thyroid gland. Pathophysiology and natural course of the condition discussed. The thyroid helps set the rate of metabolism, which is the rate at which the body uses energy. Noe's, may in the long run, stop the gland from making enough thyroid hormones for the body to work the way it should. It is the most common thyroid disease in the [place] I also reviewed that we will not be able to predict when the thyroid function will become abnormal and hence suggested checking thyroid labs annually, or sooner if new symptoms concerning for hypothyroidism occur which include fatigue, depression, further weight gain, forgetfulness, muscle weakness, puffy face, dry skin and hair, constipation, muscle cramps, and increased menstrual flow. Some patients have major swelling of the thyroid gland in the front of the neck, called goiter. Reviewed her current symptoms are less likely due to thyroid and there is no indication for intervention She is seeing OBGYN who are evaluating irregular cycles. She is advised to return if her thyroid becomes abnormal in future if she or her PCPprefers her to see Endocrine for management Medical Decision Making: Problems: Moderate: New problem with uncertain prognosis Data: Unique test result(s) reviewed: 3+ Independent interpretation of test from other physician/QHCP Medical Decision Making Level: 4 - Moderate Moraima Avalos MD Endocrinology Associate Staff [facility] Surgery [facility] Endocrinology and Metabolism Shiro [phone] Moraima Avalos MD 06/25/2024 8:31 AM Signed Please check thyrpoid function tests annually or sooner if new symptoms appear Focusing on healthy lifestyle can be helpful overall. Selenium might be beneficial in some cases to avoid progression Referring Provider: SAROJ MICHAUD [[id number]] Allergies As of Date: 06/25/2024 Noted Allergy Reaction GLUTEN 10/10/2009 5 - Intolerance Date Reviewed: 06/25/2024 Reviewed by: Sasha Fuller MA - Fully Assessed Reason for Visit: Thyroid Problem [110] Cmt: Reporting cold intolerance,fatigue Visit Diagnoses:Thyroid function study abnormality [R94.6] Cold intolerance [R68.89] Fatigue, unspecified type [R53.83] Order(s):CONSULT TO ENDOCRINOLOGY [9004] Order #: [id number]: 1 Prescriptions as of 06/25/2024 - magnesium citrate and oxide (MAGNESIUM CITRATE,MAG OXIDE ORAL) Take by mouth. - calcium phosphate dibas/vit D3 (VITAMIN D, WITH CALCIUM, ORAL) Take by mouth. - norgestimate 0.25 mg-ethinyl estradiol 35 mcg (SPRINTEC) 0.25-35 mg-mcg per tablet Take 1 tablet by mouth once daily. Problem List As Of Date: 06/25/2024 (None) Other instructions from your clinician: Please check thyrpoid function tests annually or sooner if new symptoms appear Focusing on healthy lifestyle can be helpful overall. Selenium might be beneficial in some cases to avoid progression Encounter Status:Closed by MORAIMA AVALOS on 06/25/24 THYROID PEROXIDASE ANTIBODY Collected: 05/03/2024 4:0 8 PM Status: F Source: [facility] Order Comment: Specimen Type : BLOOD SPECIMEN Ordering Facility: [facility] Address: [address] [place] [address] TYPE CODE TESTS RESULT OUT OF RANGE REFERENCE UNITS LAB 8099-4(LOINC) Thyroperoxidase Ab SerPl-aCnc 10.0 High <5.6 IU/mL Result Comment: Thyroid Fernandez xidase Antibody test is used as an aid in diagnosis of autoimmune thyroid disease. Clinical correlation is required. Performed By: #### MICRO ### # [facility] CLIA [id number] [address] [place] [address] OF [place] COMP METAB 2000 PNL SERPL Collected: 4:08 PM Status: F Source: [facility] Order Comment: Specimen Type : BLOOD SPECIMEN Ordering Facility: [facility] Address: [address], [place] [id number] TYPE CODE TESTS RESULT OUT OF RANGE REFERENCE UNITS LAB 2885-2(LOINC) Prot SerPl-mCnc 7.0 6.3-8.0 g/dL LAB 1751-7(LOINC) Albumin SerPl-mCnc 4.5 3.9-4.9 g/dL LAB 42456-4(LOINC) Calcium SerPl-mCnc 9.0 8.5-10.2 mg/dL LAB 1975-2(LOINC) Bilirub SerPl-mCnc 0.7 0.2-1.3 mg/dL LAB 6768-6(LOINC) ALP SerPl-cCnc 50 34-123 U/L LAB 58142-8(LOINC) AST SerPl w P-5'-P-cCnc 15 13-35 U/L LAB 1743-4(LOINC) ALT SerPl w P-5'-P-cCnc 18 7-38 U/L LAB 2345-7(LOINC) Glucose SerPl-mCnc 77 74-99 mg/dL Result Comment: The [place] Diabetes Association (ADA) provides guidance for cutoff values for fasting glucose and random glucose. The ADA defines fasting as no caloric intake for at least 8 hours. Fasting plasma glucose results between 100 to 125 mg/dL indicate increased risk for diabetes (prediabetes). Fasting plasma glucose results greater than or equal to 126 mg/dL meet the criteria for diagnosis of diabetes. In the absence of unequivocal hyperglycemia, results should be confirmed by repeat testing. In a patient with classic symptoms of hyperglycemia or hyperglycemic crisis, random plasma glucose results greater than or equal to 200 mg/dL meet the criteria for diagnosis of diabetes. Reference: Standards of Medical Care in Diabetes 2016, [place] Diabetes Association. Diabetes Care. 2016.39(Suppl 1). LAB 3094-0(LOINC) BUN SerPl-mCnc 12 7-21 mg/ dL LAB 2160-0(LOINC) Creat SerPl-mCnc 0.95 0.58-0.96 mg/dL LAB 2951-2(LOINC) Sodium SerPl-sCnc 139 136-144 mmol/L LAB 2823-3(LOINC) Potassium SerPl-sCnc 3.9 3.7-5.1 mmol/L LAB 2075-0(LOINC) Chloride SerPl-sCnc 103 98-107 mmol/L LAB 8-9(LOINC) CO2 SerPl-sCnc 26 22-30 mmo l/L LAB 67922-9(LOINC) Anion Gap SerPl-sCnc 10 8-15 mmol/L LAB 75938-6(LOINC) Creatinine + eGFR Pnl SerPlBld 88 >=60 mL/min/1. 73m??? Result Comment: Estimated Gl omerular Filtration Rate (eGFR) is calculated using the 2020 CKD-EPI creatinine equation. This equation utilizes serum creatinine, sex, and age as parameters. The creatinine assay has traceable calibration to isotope dilution-mass spectrometry. Refer to KDIGO guidelines for clinical interpretation. In patients with unstable renal function, e.g. those with acute kidney injury, the eGFR may not accurately reflect actual GFR. Performed By: #### 3016-3, 2 4322-10, 1987-07 #### [facility] CLIA [id number] [address] [place] [address] [facility] CRP SERPL-MCNC Collected: 05/03/2024 4:08 PM Status: F Source: [facility] Order Comment: Specimen Type : BLOOD SPECIMEN Ordering Facility: [facility] Address: [address] [place] [address] TYPE CODE TESTS RESULT OUT OF RANGE REFERENCE UNITS LAB 1987-([facility]) CRP SerPl-mCnc <0.3 <0.9 mg/dL Performed By: #### 3016-3, 2 8, 1987-07 #### [facility] CLIA [id number] [address] [place] [address] [facility] TSH SERPL-ACNC Collected: 4:08 PM Status: F Source: [facility] Order Comment: Specimen Type : BLOOD SPECIMEN Ordering Facility: [facility] Address: [address] [place] [address] TYPE CODE TESTS RESULT OUT OF RANGE REFERENCE UNITS LAB 3016-3(LOINC) TSH SerPl-aCnc 2.140 0.510-4.300 mIU/L Result Comment: If the patie nt is , TSH reference range varies by gestational period: First Trimester (weeks 9-12): 0.180-2.990 mIU/L Second Trimester: 0.110-3.980 mIU/L Third Trimester: 0.480-4.710 mIU/L Chandana Coates et al. A Practical Approach for the Verifications and Determination of Site- and Trimester-Specific Reference Intervals for Thyroid Function tests in . Thyroid, 2019:29:3:412-420. Nas E, et al. 2017 Guidelines of the [place] Thyroid Association for the Diagnosis and Management of Thyroid Disease during and the . Thyroid, 2017:27:3:315-389. Performed By: #### 3016-3, 2 4323-8, 1987- #### [facility] CLIA [id number] [address] [place] [address] [facility] T4 FREE SERPL-MCNC Collected: 05/03/2024 4:08 PM Sta tus: F Source: [facility] Order Comment: Specimen Type : BLOOD SPECIMEN Ordering Facility: [facility] Address: [address] [place] [address] TYPE CODE TESTS RESULT OUT OF RANGE REFERENCE UNITS LAB 3024-7(LOINC) T4 Free SerPl-mCnc 1.1 0.9-1.7 ng/dL Performed By: #### 3053-6, 3 #### [facility] CLIA [id number] [address] [place] [address] T3 SERPL-MCNC Collected: 05/03/2024 4:08 PM Status: F Source: [facility] Order Comment: Specimen Type : BLOOD SPECIMEN Ordering Facility: [facility] Address: [address] [place] [address] TYPE CODE TESTS RESULT OUT OF RANGE REFERENCE UNITS LAB 3053-6(LOINC) T3 SerPl-mCnc 98 79-165 ng/d L Performed By: #### 3053-6, 3 024-7 #### [facility] CLIA [id number] [address] HIV1+2 AB SERPL QL IA Collected: 2024 4:08 PM Status: F Source: [facility] Order Comment: Specimen Type : BLOOD SPECIMEN Ordering Facility: [facility] Address: [address] [place] [address] TYPE CODE TESTS RESULT OUT OF RANGE REFERENCE UNITS LAB 47892-1(LOINC) HIV 1+2 Ab+HIV1 p24 Ag SerPl Ql IA Nonreactive Nonreactive Result Comment: [place] Rev. Co de 3701.243(E): This information has been disclosed to you from confidential records protected from disclosure by state law. ???You shall make no further disclosure of this information without the specific, written, and informed release of the individual to whom it pertains or as otherwise permitted by state law. A general authorization for the release of medical or other information is not sufficient for the purpose of the release of HIV test results or diagnoses. Test methodology for this assay has moved from Siemens Centaur XP to Nimiaas 8000 effective December 08, 2021. Please note there may be a change in the reporting units and/or reference range. LAB 72192-4(LOINC) HIV 1 AND 2 Ab SerPlBld IA.rapid Result Comment: Test not ind icated. LAB 78363-8(LOINC) HIV IA algorithm interp SerPlBld-Imp Result Comment: No evidence of HIV-1 or HIV-2 infection. Should recent infection be suspected, repeat testing may be considered 2-3 weeks after this draw. Performed By: #### 17302-4 # ### [facility] CLIA [id number] [address] 25([place])D3 SERPL-MCNC Collected: 05/03/19 4:08 PM Status: F Source: [facility] Order Comment: Specimen Type : BLOOD SPECIMEN Ordering Facility: [facility] Address: [address] [place] [address] TYPE CODE TESTS RESULT OUT OF RANGE REFERENCE UNITS LAB 1989-3(LOINC) 25([place])D3 SerPl-mCnc 23.7 Low >=30.0 ng/mL Result Comment: Classificati on of 25 [place] Vitamin D status: Deficiency: <= 20.0 ng/ml. Insufficiency: 21.0-29.0 ng/ml. Sufficiency: >= 30.0 ng/ml. Performed By: #### 1989-3 ## ## [facility] CLIA [id number] [address] HCV AB SER QL Collected: 4:08 PM Status: F Source: [facility] Order Comment: Specimen Type : BLOOD SPECIMEN Ordering Facility: [facility] Address: [address] [place] [address] TYPE CODE TESTS RESULT OUT OF RANGE REFERENCE UNITS LAB 74952-1([facility]) HCV Ab Ser Ql Nonreactive Nonreactive Result Comment: The result s uggests no evidence of active infection with Hepatitis C virus. Should recent infection be suspected, repeat testing may be considered 4- 6 weeks after this draw. Performed By: #### 83653-7 # ### [facility] CLIA [id number] [address] PROGRESS Observed: 05/03/2024 2:40 PM Status: COMPLETED Source: [facility] HNO ID: [id number] Author: SAROJ MICHAUD APRN.ON AIR HOST Service: ? Author Type: Nurse Practitioner Type: Progress Notes Filed: 05/06/2024 19:49 Note Text: This note was created using Stepcase. Subjective Armida Porras is a 19 year old female here today for multiple complaints. She is here with her roommate. She has never been seen here. No PCP. She complains of joint pain, always cold, stomach pains. Cold feeling: She reports she has always been cold. States it has worsened as she gets older. She reports she always feels internally cold, not just her hands or feet. She reports her thyroid was checked last year and was normal. She reports having thyroid checked in the past and it was normal Joint pain: She reports having joint pains. States she has pain in right wrist (she is right handed), knees and low back. She reports she has had this for years. She reports they crack. She reports when she stands for long periods of time it starts hurting and states she will have some swelling in her knees. She has never seen anyone for this. She reports she noticed her wrist since HS. reports her knees and her back over the past 2 yrs. She reports playing volleyball for 6 ys in HS and grade school. She will take ibuprofen if her back is severe at worse it is 7/10. She did see BEHAVIORAL ANALYST yesterday on 05/02/24 for complaints of painful menses and discomfort. Increased bleeding and passing out. Reported not going to classes due to pain. LMP 04/08/24. She started her on oral control. Swab for BV and maxx and trich were completed. She ordered CBC and iron panel. Hx of anxiety, OCD. She reports she was on medications all throughout HS. She reports she has hx of anxiety. States she was going through testing for OCD. She reports she was on medications. She was seeing counselor through [facility] which is virtual. She reports she just stopped her medication. She reports she was on prozac in the past. Hx IBS: she reports she had been dx when Freshman in in 2019. She was previously on bentyl for this. She is constipation dominant. She reports her diet at college has made symptoms worse. She reports she also has gluten intolerance. Reports the college meal plan does not have much food she can eat. She reports coffee will help her bowels and relieve her constipation. She is requesting a note for her school to release her from the mandatory meal plan. ALLERGIES Allergen Reactions Gluten Intolerance Current Outpatient Medications Medication Sig Dispense Refill norgestimate 0.25 mg-ethinyl estradiol 35 mcg (SPRINTEC) 0.25-35 mg-mcg per tablet Take 1 tablet by mouth once daily. 84 tablet 3 No current facility-administered medications for this visit. There is no problem list on file for this patient. No past medical history on file. No past surgical history on file. Social History Tobacco Use Smoking status: Never Smokeless tobacco: Never Vaping Use Vaping status: Never Used Substance Use Topics Alcohol use: Never Drug use: Never Family History Problem Relation Age of Onset No Known Problems Mother No Known Problems Father No Known Problems Sister Breast Cancer Maternal Grandmother Cancer Maternal Grandfather Breast Cancer Paternal Grandmother Cancer Paternal Grandfather . Review of Systems Constitutional: Negative for activity change, appetite change, chills, diaphoresis, fatigue, fever and unexpected weight change. HENT: Negative for sinus pain, sore throat and trouble swallowing. Eyes: Negative for photophobia and visual disturbance. Respiratory: Negative for cough, chest tightness, shortness of breath and wheezing. Cardiovascular: Negative for chest pain, palpitations and leg swelling. Gastrointestinal: Positive for abdominal pain and constipation. Negative for blood in stool, diarrhea, nausea and vomiting. See HPI Endocrine: Positive for cold intolerance. Negative for heat intolerance, polydipsia, polyphagia and polyuria. Genitourinary: Negative for difficulty urinating, dysuria and hematuria. Musculoskeletal: Positive for arthralgias, back pain and joint swelling. Negative for myalgias and neck pain. See HPI Skin: Negative. Allergic/Immunologic: Positive for food allergies. Negative for environmental allergies and immunocompromised state. Gluten intolerance Neurological: Negative for dizziness, speech difficulty, weakness, light-headedness, numbness and headaches. Hematological: Negative. Does not bruise/bleed easily. She reports she has always bruised easily. Psychiatric/Behavioral: Negative for dysphoric mood and sleep disturbance. The patient is not nervous/anxious. Objective 05/03/24 1455 BP: 116/60 Pulse: 80 Resp: 18 SpO2: 99% Weight: 71.8 kg (158 lb 6.4 oz) Height: 175.3 cm (5' 9) Physical Exam Vitals and nursing note reviewed. Constitutional: General: She is not in acute distress. Appearance: Normal appearance. She is not ill-appearing or diaphoretic. HENT: Head: Normocephalic and atraumatic. Right Ear: External ear normal. Left Ear: External ear normal. Nose: Nose normal. No congestion or rhinorrhea. Mouth/Throat: Pharynx: No oropharyngeal exudate. Eyes: General: Lids are normal. No scleral icterus. Right eye: No discharge. Left eye: No discharge. Conjunctiva/sclera: Conjunctivae normal. Pupils: Pupils are equal, round, and reactive to light. Neck: Vascular: Normal carotid pulses. No carotid bruit. Cardiovascular: Rate and Rhythm: Normal rate and regular rhythm. Pulses: Normal pulses. Heart sounds: Normal heart sounds, S1 normal and S2 normal. No murmur heard. No friction rub. No gallop. Pulmonary: Effort: Pulmonary effort is normal. No accessory muscle usage or respiratory distress. Breath sounds: Normal breath sounds. No decreased breath sounds, wheezing, rhonchi or rales. Chest: Chest wall: No tenderness. Abdominal: General: Bowel sounds are normal. There is no distension. Palpations: Abdomen is soft. Tenderness: There is no abdominal tenderness. There is no right CVA tenderness, guarding or rebound. Musculoskeletal: General: No tenderness. Normal range of motion. Cervical back: Normal range of motion and neck supple. Right lower leg: No edema. Left lower leg: No edema. Skin: General: Skin is warm and dry. Coloration: Skin is not pale. Findings: No erythema or rash. Nails: There is no clubbing. Neurological: General: No focal deficit present. Mental Status: She is alert and oriented to person, place, and time. Mental status is at baseline. Motor: No abnormal muscle tone. Coordination: Coordination normal. Deep Tendon Reflexes: Reflexes are normal and symmetric. Psychiatric: Attention and Perception: Attention and perception normal. Mood and Affect: Mood normal. Speech: Speech normal. Behavior: Behavior normal. Behavior is cooperative. Thought Content: Thought content normal. Cognition and Memory: Cognition and memory normal. Judgment: Judgment normal. Assessment and Plan ASSESSMENT/PLAN: 1. Cold intolerance - ICD9: 780.99, ICD10: R68.89 (primary diagnosis) - normal exam today. Will check labs as ordered - THYROID STIMULATING HORMONE - T3 - T4 FREE/FREE THYROXINE - THYROID PEROXIDASE ANTIBODY 2. Fatigue, unspecified type - ICD9: 780.79, ICD10: R53.83 - normal exam. She did see BEHAVIORAL ANALYST who ordered. Labs. Will check thyroid labs. - THYROID STIMULATING HORMONE - T3 - T4 FREE/FREE THYROXINE - THYROID PEROXIDASE ANTIBODY 3. Irritable bowel syndrome with constipation - ICD9: 564.1, ICD10: K58.1 - chronic, stable, declines bentyl rx. 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 4. Arthralgia of right wrist - ICD9: 719.43, ICD10: M25.531 - Chronic, reports worsening of wrist, back and knee pain over the past 2 yrs. Normal exam today. No concerning findings. Will check inflammation markers - recommend otc tylenol or ibuprofen as needed - C-REACTIVE PROTEIN - SEDIMENTATION RATE, WESTERGREN 5. Chronic pain of both knees - ICD9: 719.46, 338.29, ICD10: M25.561, M25.562, G89.29 - see above - C-REACTIVE PROTEIN - SEDIMENTATION RATE, WESTERGREN - SEDIMENTATION RATE, WESTERGREN 6. Chronic bilateral low back pain without sciatica - ICD9: 724.2, 338.29, ICD10: M54.50, G89.29 - see above - C-REACTIVE PROTEIN - SEDIMENTATION RATE, WESTERGREN 7. Encounter for screening for diabetes mellitus - ICD9: V77.1, ICD10: Z13.1 - COMPREHENSIVE METABOLIC PANEL 8. Vitamin D deficiency - ICD9: 268.9, ICD10: E55.9 - VITAMIN D 25 HYDROXY 9. Special screening examination for viral disease - ICD9: V73.99, ICD10: Z11.59 - HEPATITIS C ANTIBODY IA WITH CONFIRMATION 10. Screening for HIV (human immunodeficiency virus) - ICD9: V73.89, ICD10: Z11.4 - HIV 1/2 COMBO WITH REFLEX TO DIFFERENTIATION Saroj Michaud APRN.CNP I spent a total of 60 minutes on the date of the service which included preparing to see the patient, [id number] patient care, completing clinical documentation, obtaining and/or reviewing separately obtained history, performing a medically appropriate examination, counseling and educating the patient/family/caregiver, and ordering medications, tests, or procedures. CNOV Observed: 05/03/2024 2:40 PM Status: COMPLETED Source: [facility] Office Visit (AGINTMLW) ARMIDA PORRAS ([id number]) 3 F Date Time Provider Department 05/03/24 2:40 PM SAROJ MICHAUD During your visit today, we recorded the following information about you: Pulse Respiration Blood pressure Weight 80/minute 18/minute 116/60 71.8 kg Height 1.753 m Saroj Michaud APRN.CNP 05/06/2024 7:49 PM Signed This note was created using Stirter. Subjective Armida Porras is a 19 year old female here today for multiple complaints. She is here with her roommate. She has never been seen here. No PCP. She complains of joint pain, always cold, stomach pains. Cold feeling: She reports she has always been cold. States it has worsened as she gets older. She reports she always feels internally cold, not just her hands or feet. She reports her thyroid was checked last year and was normal. She reports having thyroid checked in the past and it was normal Joint pain: She reports having joint pains. States she has pain in right wrist (she is right handed), knees and low back. She reports she has had this for years. She reports they crack. She reports when she stands for long periods of time it starts hurting and states she will have some swelling in her knees. She has never seen anyone for this. She reports she noticed her wrist since HS. reports her knees and her back over the past 2 yrs. She reports playing volleyball for 6 ys in HS and grade school. She will take ibuprofen if her back is severe at worse it is 7/10. She did see BEHAVIORAL ANALYST yesterday on 05/02/24 for complaints of painful menses and discomfort. Increased bleeding and passing out. Reported not going to classes due to pain. LMP 04/08/24. She started her on oral control. Swab for BV and maxx and trich were completed. She ordered CBC and iron panel. Hx of anxiety, OCD. She reports she was on medications all throughout HS. She reports she has hx of anxiety. States she was going through testing for OCD. She reports she was on medications. She was seeing counselor through [facility] which is virtual. She reports she just stopped her medication. She reports she was on prozac in the past. Hx IBS: she reports she had been dx when Freshman in HS in 2019. She was previously on bentyl for this. She is constipation dominant. She reports her diet at college has made symptoms worse. She reports she also has gluten intolerance. Reports the college meal plan does not have much food she can eat. She reports coffee will help her bowels and relieve her constipation. She is requesting a note for her school to release her from the mandatory meal plan. ALLERGIES Allergen Reactions Gluten Intolerance Current Outpatient Medications Medication Sig Dispense Refill norgestimate 0.25 mg-ethinyl estradiol 35 mcg (SPRINTEC) 0.25-35 mg-mcg per tablet Take 1 tablet by mouth once daily. 84 tablet 3 No current facility-administered medications for this visit. There is no problem list on file for this patient. No past medical history on file. No past surgical history on file. Social History Tobacco Use Smoking status: Never Smokeless tobacco: Never Vaping Use Vaping status: Never Used Substance Use Topics Alcohol use: Never Drug use: Never Family History Problem Relation Age of Onset No Known Problems Mother No Known Problems Father No Known Problems Sister Breast Cancer Maternal Grandmother Cancer Maternal Grandfather Breast Cancer Paternal Grandmother Cancer Paternal Grandfather . Review of Systems Constitutional: Negative for activity change, appetite change, chills, diaphoresis, fatigue, fever and unexpected weight change. HENT: Negative for sinus pain, sore throat and trouble swallowing. Eyes: Negative for photophobia and visual disturbance. Respiratory: Negative for cough, chest tightness, shortness of breath and wheezing. Cardiovascular: Negative for chest pain, palpitations and leg swelling. Gastrointestinal: Positive for abdominal pain and constipation. Negative for blood in stool, diarrhea, nausea and vomiting. See HPI Endocrine: Positive for cold intolerance. Negative for heat intolerance, polydipsia, polyphagia and polyuria. Genitourinary: Negative for difficulty urinating, dysuria and hematuria. Musculoskeletal: Positive for arthralgias, back pain and joint swelling. Negative for myalgias and neck pain. See HPI Skin: Negative. Allergic/Immunologic: Positive for food allergies. Negative for environmental allergies and immunocompromised state. Gluten intolerance Neurological: Negative for dizziness, speech difficulty, weakness, light-headedness, numbness and headaches. Hematological: Negative. Does not bruise/bleed easily. She reports she has always bruised easily. Psychiatric/Behavioral: Negative for dysphoric mood and sleep disturbance. The patient is not nervous/anxious. Objective 05/03/24 1455 BP: 116/60 Pulse: 80 Resp: 18 SpO2: 99% Weight: 71.8 kg (158 lb 6.4 oz) Height: 175.3 cm (5' 9) Physical Exam Vitals and nursing note reviewed. Constitutional: General: She is not in acute distress. Appearance: Normal appearance. She is not ill-appearing or diaphoretic. HENT: Head: Normocephalic and atraumatic. Right Ear: External ear normal. Left Ear: External ear normal. Nose: Nose normal. No congestion or rhinorrhea. Mouth/Throat: Pharynx: No oropharyngeal exudate. Eyes: General: Lids are normal. No scleral icterus. Right eye: No discharge. Left eye: No discharge. Conjunctiva/sclera: Conjunctivae normal. Pupils: Pupils are equal, round, and reactive to light. Neck: Vascular: Normal carotid pulses. No carotid bruit. Cardiovascular: Rate and Rhythm: Normal rate and regular rhythm. Pulses: Normal pulses. Heart sounds: Normal heart sounds, S1 normal and S2 normal. No murmur heard. No friction rub. No gallop. Pulmonary: Effort: Pulmonary effort is normal. No accessory muscle usage or respiratory distress. Breath sounds: Normal breath sounds. No decreased breath sounds, wheezing, rhonchi or rales. Chest: Chest wall: No tenderness. Abdominal: General: Bowel sounds are normal. There is no distension. Palpations: Abdomen is soft. Tenderness: There is no abdominal tenderness. There is no right CVA tenderness, guarding or rebound. Musculoskeletal: General: No tenderness. Normal range of motion. Cervical back: Normal range of motion and neck supple. Right lower leg: No edema. Left lower leg: No edema. Skin: General: Skin is warm and dry. Coloration: Skin is not pale. Findings: No erythema or rash. Nails: There is no clubbing. Neurological: General: No focal deficit present. Mental Status: She is alert and oriented to person, place, and time. Mental status is at baseline. Motor: No abnormal muscle tone. Coordination: Coordination normal. Deep Tendon Reflexes: Reflexes are normal and symmetric. Psychiatric: Attention and Perception: Attention and perception normal. Mood and Affect: Mood normal. Speech: Speech normal. Behavior: Behavior normal. Behavior is cooperative. Thought Content: Thought content normal. Cognition and Memory: Cognition and memory normal. Judgment: Judgment normal. Assessment and Plan ASSESSMENT/PLAN: 1. Cold intolerance - ICD9: 780.99, ICD10: R68.89 (primary diagnosis) - normal exam today. Will check labs as ordered - THYROID STIMULATING HORMONE - T3 - T4 FREE/FREE THYROXINE - THYROID PEROXIDASE ANTIBODY 2. Fatigue, unspecified type - ICD9: 780.79, ICD10: R53.83 - normal exam. She did see BEHAVIORAL ANALYST who ordered. Labs. Will check thyroid labs. - THYROID STIMULATING HORMONE - T3 - T4 FREE/FREE THYROXINE - THYROID PEROXIDASE ANTIBODY 3. Irritable bowel syndrome with constipation - ICD9: 564.1, ICD10: K58.1 - chronic, stable, declines bentyl rx. 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 4. Arthralgia of right wrist - ICD9: 719.43, ICD10: M25.531 - Chronic, reports worsening of wrist, back and knee pain over the past 2 yrs. Normal exam today. No concerning findings. Will check inflammation markers - recommend otc tylenol or ibuprofen as needed - C-REACTIVE PROTEIN - SEDIMENTATION RATE, WESTERGREN 5. Chronic pain of both knees - ICD9: 719.46, 338.29, ICD10: M25.561, M25.562, G89.29 - see above - C-REACTIVE PROTEIN - SEDIMENTATION RATE, WESTERGREN - SEDIMENTATION RATE, WESTERGREN 6. Chronic bilateral low back pain without sciatica - ICD9: 724.2, 338.29, ICD10: M54.50, G89.29 - see above - C-REACTIVE PROTEIN - SEDIMENTATION RATE, WESTERGREN 7. Encounter for screening for diabetes mellitus - ICD9: V77.1, ICD10: Z13.1 - COMPREHENSIVE METABOLIC PANEL 8. Vitamin D deficiency - ICD9: 268.9, ICD10: E55.9 - VITAMIN D 25 HYDROXY 9. Special screening examination for viral disease - ICD9: V73.99, ICD10: Z11.59 - HEPATITIS C ANTIBODY IA WITH CONFIRMATION 10. Screening for HIV (human immunodeficiency virus) - ICD9: V73.89, ICD10: Z11.4 - HIV 1/2 COMBO WITH REFLEX TO DIFFERENTIATION Saroj Michaud APRN.CHARLEEN I spent a total of 60 minutes on the date of the service which included preparing to see the patient, [id number] patient care, completing clinical documentation, obtaining and/or reviewing separately obtained history, performing a medically appropriate examination, counseling and educating the patient/family/caregiver, and ordering medications, tests, or procedures. Allergies As of Date: 05/03/2024 Noted Allergy Reaction GLUTEN 10/10/2009 5 - Intolerance Date Reviewed: 05/03/2024 Reviewed by: Karishma Muñoz LPN - Fully Assessed Reason for Visit: Wellness [440] Cmt: Joint pain, cold, stomach pain, passing out. Primary Visit Diagnosis:Cold intolerance [R68.89] Other Visit Diagnoses:Fatigue, unspecified type [R53.83] Irritable bowel syndrome with constipation [K58.1] Arthralgia of right wrist [M25.531] Chronic pain of both knees [M25.561, M25.562, G89.29] Chronic bilateral low back pain without sciatica [M54.50, G89.29] Encounter for screening for diabetes mellitus [Z13.1] Vitamin D deficiency [E55.9] Special screening examination for viral disease [Z11.59] Screening for HIV (human immunodeficiency virus) [Z11.4] Order(s):C-REACTIVE PROTEIN [SQCRP] Order #: [id number] FUTURE SEDIMENTATION RATE, WESTERGREN [SQWSR] Order #: [id number] FUTURE THYROID STIMULATING HORMONE [SQTSH] Order #: [id number] FUTURE T3 [SQT3] Order #: [id number] FUTURE T4 FREE/FREE THYROXINE [SQFT4] Order #: [id number] FUTURE THYROID PEROXIDASE ANTIBODY [SQMICRO] Order #: [id number] FUTURE COMPREHENSIVE METABOLIC PANEL [SQCMP] Order #: [id number] FUTURE VITAMIN D 25 HYDROXY [SQVITD] Order #: [id number] FUTURE HEPATITIS C ANTIBODY IA WITH CONFIRMATION [JNYSHE0M] Order #: [id number] FUTURE HIV 1/2 COMBO WITH REFLEX TO DIFFERENTIATION [SQHIV12] Order #: [id number] FUTURE SEDIMENTATION RATE, WESTERGREN [SQWSR] Order #: [id number] FUTURE Prescriptions as of 05/06/2024 - norgestimate 0.25 mg-ethinyl estradiol 35 mcg (SPRINTEC) 0.25-35 mg-mcg per tablet Take 1 tablet by mouth once daily. Problem List As Of Date: 05/03/2024 (None) Disposition: Return in about 4 weeks (around 05/31/2024) for WAE, passing out, abd pain, slow metabolism. Follow-up and Disposition History for Encounter Date Provider Department Center 05/03/2024 [id number] MICHAUD AGINTMLW [address] Encounter Status:Closed by SAROJ MICHAUD on 05/06/24 CNCO Observed: 05/03/2024 12:00 AM Status: COM PLETED Source: [facility] Letter Text MAXX/TRICHOMONAS NAAT Collected: 2:40 PM Status: F Source: [facility] Order Comment: Specimen Type : SWAB Ordering Facility: [facility] Address: [address] [place] [address] TYPE CODE TESTS RESULT OUT OF RANGE REFERENCE UNITS LAB 14587-2(LOINC ) Maxx DNA Vag Ql KEON+probe Not detected Not detected Result Comment: The Maxx species group target includes C. albicans, C. tropicalis, C. parapsilosis, and C. dubliniensis. LAB 11442-8(LOINC ) C glabrata RNA Vag Ql KEON+probe Not detected Not detected LAB 96329-8(LOINC ) T vaginalis DNA Spec Ql KEON+probe Not detected Not detected Performed By: #### CVTV, BVA MP #### [facility] CLIA [id number] [address] [place] [address] STATES [facility] BACTERIAL VAGINOSIS NAAT Collected: 2:40 PM Status: F Source: [facility] Order Comment: Specimen Type : SWAB Ordering Facility: [facility] Address: [address] [place] [address] TYPE CODE TESTS RESULT OUT OF RANGE REFERENCE UNITS LAB 44714-8(LOINC) BV bacteria rRNA Vag Ql KEON+probe Not detected Not detected Performed By: #### CVTV, BVA MP #### [facility] CLIA [id number] [address] [place] [address] OF [facility] Observed: 05/02/2024 2:05 PM Status: COMPLETED Source: [facility] HNO ID: [id number] Author: EARLINE SMITH APRN.CNM Service: ? Author Type: Roofing Apprentice Type: Progress Notes Filed: 05/02/2024 14:49 Note Text: Armida Porras is a 19 year old female who presents for problem visit for . HPI: Here today due to painful menses and discomfort. Had US in 01/28 and normal US. Did not want to use control. Increased bleeding, passing out, not going to classes due to pain. LMP 04/08/24, menses are every month, no bleeding or spotting between. Pain starts 3-4 days prior to menses and last duration of menses is about 4-5 days Wears Super tampon and is changing every 2-3 hours. This is not normal for her as she normally has a receptionist doctor's office flow. Not using anything for control and has never taken anything in the past. Sexually active. Declines STD testing today. Admits to pain with intercourse and not able to discern what is the cause. This will then cause bleeding at times. OB History No obstetric history on file. Front Office Representative History LMP: 04/08/2024, Having periods Age at Menarche: 11 Age at First : Age at Menopause: Front Office Representative History Comments: Sexual Activity: Yes; Male Contraception: Condom Menstrual Tracking History Flowsheet Row Office Visit from 05/02/2024 in OB/Gynecology Period Cycle (Days) 30 Period Duration (Days) 5 Menstrual Flow Heavy History reviewed. No pertinent past medical history. History reviewed. No pertinent surgical history. FAMILY HISTORY Problem Relation Age of Onset No Known Problems Mother No Known Problems Father No Known Problems Sister Breast Cancer Maternal Grandmother Cancer Maternal Grandfather Breast Cancer Paternal Grandmother Cancer Paternal Grandfather Social History Tobacco Use Smoking status: Never Smokeless tobacco: Never Vaping Use Vaping status: Never Used Substance Use Topics Alcohol use: Never Drug use: Never No current outpatient medications on file. No current facility-administered medications for this visit. Allergies As of Date: 05/02/2024 (No Known Allergies) Fully Assessed 05/02/2024 REVIEW OF SYSTEMS Abdomen: No bloating, early satiety, indigestion, or increased flatulence. No abdominal pain, nausea, vomiting, diarrhea, or constipation. Bladder: No dysuria, gross hematuria, urinary frequency, urinary urgency, or incontinence. Breast: No breast lumps, nipple d/c, overlying skin changes, redness or skin retraction. Expanded ROS: N/A Allergies and current medication updated:Yes SENSITIVE EXAM: Sensitive exam not performed. EXAM: BP 100/60 Wt 158 lb 6.4 oz (71.9kg) LMP 04/08/2024 GENERAL: pleasant, female in no apparent distress HEENT: Normocephalic, atraumatic, mucus membranes moist, and no lesions NECK: Supple, full range of motion, no adenopathy, and thyroid normal DERMATOLOGY: Normal, without lesions, non-icteric, and non-hirsute BREAST: soft, non-tender, symmetric, no dominant mass, normal nipple-areolar complex, no lymphadenopathy, and no nipple discharge CHEST: Normal inspiratory effort deferred BIMANUAL: deferred NEURO: alert and oriented x3,exam grossly non-focal EXTREMITIES: normal ASSESSMENT AND PLAN: Assessment AND Plan Menorrhagia with regular cycle Orders: PROLACTIN; Future COMPLETE BLOOD COUNT AND DIFFERENTIAL; Future IRON AND TIBC; Future FERRITIN; Future Dysmenorrhea Declines GC/CT today, negative in 12/28 Orders: MAXX/TRICHOMONAS NAAT BACTERIAL VAGINOSIS NAAT PCB (post coital bleeding) Orders: MAXX/TRICHOMONAS NAAT BACTERIAL VAGINOSIS NAAT Encounter for initial prescription of contraceptive pills Will start Sprintec and she is agreeable at this time. I discussed with the patient the risks, benefits, mechanism of action and alternatives to combined hormonal contraceptive use. No medical contraindications. Reviewed risk of blood clot, stroke and heart attack with hormonal contraception. Reviewed warning signs ACHES. Discussed stopping control 4 weeks prior to scheduled surgery if will be immobile. I reviewed with her the administration options and when to start. Her questions were answered and she desired to start. Earline Smith APRN.CNM CNOV Observed: 05/02/2024 2:00 PM Status: COMPLETED Source: [facility] Office Visit (OBGYWM) ARMIDA PORRAS ([id number]) 3 F Date Time Provider Department 05/02/24 2:00 PM EARLINE SMITH OBGYWM During your visit today, we recorded the following information about you: Blood pressure Weight Last Period 100/60 71.8 kg 04/08/24 Earline Smith APRN.CNM 05/02/2024 2:49 PM Signed Armida Porras is a 19 year old female who presents for problem visit for . HPI: Here today due to painful menses and discomfort. Had US in 01/28 and normal US. Did not want to use control. Increased bleeding, passing out, not going to classes due to pain. LMP 04/08/24, menses are every month, no bleeding or spotting between. Pain starts 3-4 days prior to menses and last duration of menses is about 4-5 days Wears Super tampon and is changing every 2-3 hours. This is not normal for her as she normally has a receptionist doctor's office flow. Not using anything for control and has never taken anything in the past. Sexually active. Declines STD testing today. Admits to pain with intercourse and not able to discern what is the cause. This will then cause bleeding at times. OB History No obstetric history on file. Front Office Representative History LMP: 04/08/2024, Having periods Age at Menarche: 11 Age at First : Age at Menopause: Front Office Representative History Comments: Sexual Activity: Yes; Male Contraception: Condom Menstrual Tracking History Flowsheet Row Office Visit from 05/02/2024 in OB/Gynecology Period Cycle (Days) 30 Period Duration (Days) 5 Menstrual Flow Heavy History reviewed. No pertinent past medical history. History reviewed. No pertinent surgical history. FAMILY HISTORY Problem Relation Age of Onset No Known Problems Mother No Known Problems Father No Known Problems Sister Breast Cancer Maternal Grandmother Cancer Maternal Grandfather Breast Cancer Paternal Grandmother Cancer Paternal Grandfather Social History Tobacco Use Smoking status: Never Smokeless tobacco: Never Vaping Use Vaping status: Never Used Substance Use Topics Alcohol use: Never Drug use: Never No current outpatient medications on file. No current facility-administered medications for this visit. Allergies As of Date: 05/02/2024 (No Known Allergies) Fully Assessed 05/02/2024 REVIEW OF SYSTEMS Abdomen: No bloating, early satiety, indigestion, or increased flatulence. No abdominal pain, nausea, vomiting, diarrhea, or constipation. Bladder: No dysuria, gross hematuria, urinary frequency, urinary urgency, or incontinence. Breast: No breast lumps, nipple d/c, overlying skin changes, redness or skin retraction. Expanded ROS: N/A Allergies and current medication updated:Yes SENSITIVE EXAM: Sensitive exam not performed. EXAM: BP 100/60 Wt 158 lb 6.4 oz (71.9kg) LMP 04/08/2024 GENERAL: pleasant, female in no apparent distress HEENT: Normocephalic, atraumatic, mucus membranes moist, and no lesions NECK: Supple, full range of motion, no adenopathy, and thyroid normal DERMATOLOGY: Normal, without lesions, non-icteric, and non-hirsute BREAST: soft, non-tender, symmetric, no dominant mass, normal nipple-areolar complex, no lymphadenopathy, and no nipple discharge CHEST: Normal inspiratory effort deferred BIMANUAL: deferred NEURO: alert and oriented x3,exam grossly non-focal EXTREMITIES: normal ASSESSMENT AND PLAN: Assessment AND Plan Menorrhagia with regular cycle Orders: PROLACTIN; Future COMPLETE BLOOD COUNT AND DIFFERENTIAL; Future IRON AND TIBC; Future FERRITIN; Future Dysmenorrhea Declines GC/CT today, negative in 12/28 Orders: MAXX/TRICHOMONAS NAAT BACTERIAL VAGINOSIS NAAT PCB (post coital bleeding) Orders: MAXX/TRICHOMONAS NAAT BACTERIAL VAGINOSIS NAAT Encounter for initial prescription of contraceptive pills Will start Sprintec and she is agreeable at this time. I discussed with the patient the risks, benefits, mechanism of action and alternatives to combined hormonal contraceptive use. No medical contraindications. Reviewed risk of blood clot, stroke and heart attack with hormonal contraception. Reviewed warning signs ACHES. Discussed stopping control 4 weeks prior to scheduled surgery if will be immobile. I reviewed with her the administration options and when to start. Her questions were answered and she desired to start. JOVANNA Whipple Jessica, APRN.CNM 05/02/2024 2:30 PM Signed Oral Contraceptives: The Pill Beginning the Pill Pills come in either a 21 day pack or a 28 day pack. With the 21 day pack you will take one pill for 21 days then no pill for 7 days, during which time you will have what is known as withdrawal bleeding. The 28 day pack allows you to take a pill every day of the cycle with no interruptions. The first 21 pills are the pills with the active ingredients and the last 7 are the nonmedical pills (placebo) or they may contain iron. There will be bleeding during the week you are taking the nonmedical pills. The advantage to the 28 day pack is that you don?t have to keep track of when you stopped the pill. Unless otherwise instructed, you should start your pills the Tuesday following your first day of bleeding with your next period (if your period starts on a Tuesday, you should start pills the same day) Read your information packet that comes with the pills. Pill Benefits The pill is the most popular method of reversible control being used today. Millions of women rely on oral contraceptives as their control method. It is important to have an examination by your physician to determine if the pill is safe for you. There are several advantages associated with the pill: it is 97-98% effective; may improve acne; periods are more regular and less painful; there is less iron deficiency anemia in pill users. [facility] use is associated with a decreased incidence of ovarian and uterine cancer. There is also no evidence that the pill increases the incidence of any cancer. How Oral Contraceptives Work Oral contraceptives come in two varieties. One is the combination pill which contains both estrogen and progesterone. Combination pills are considered 98-99% effective in preventing . This pill comes in either monophasic, which delivers the same amount of estrogen and progesterone throughout the cycle; and triphasic, which try tries to mimic the normal hormone cycle by changing the levels of the hormones in the pills during the month. There is no real advantage to taking the one over the other. The other type of pill only contains progesterone. It is best used for women who can?t take estrogen. This type of pill is slightly less effective than the combination pill in preventing . Oral contraceptives prevent ovulation (release of an egg from the ovary) by suppressing the pituitary gland?s action. The pill does NOT prevent sexually transmitted disease. Obtaining a Prescription It is important to see your doctor before starting oral contraceptives so that you can have a full medical history taken and a physical examination given. Certain medical conditions may make the pill inappropriate for you, therefore it is very important to be honest and as complete as possible with the information you share with your doctor. The types of predisposing factors which would make the pill a poor choice of control would include: History of blood clots Stroke Serious liver disease or impaired liver function Unexplained vaginal bleeding or Cancer of the reproductive system Active gall bladder disease Hypertension Possible Side Effects It can take up to three months for your body to become adjusted to the pill. The more common side effects experienced at this time are: breakthrough spotting or bleeding, which is bleeding at any other time other than when you should be having a period; nausea or vomiting; breast tenderness; and mild fluid retention. There is no chcf weight gain with the use of the pill. Breakthrough bleeding is the most common complaint of new pill users. There is no way to predict who will have it and there is no way of preventing it. Breakthrough bleeding usually subsides on its own with no further treatment after the first three months of taking the pill. If these symptoms continue to occur after the first three months you should check with your physician to see if there is any physical cause and possibly change to another control pill. Problems: Missed 1 pill: Take 2 pills the next day. Missed 2 pills: Take 2 pills the next day and 2 pills the following day. Also use another form of control (condoms) along with the pill for the rest of the month. Missed 3 or more pills: You have two choices. You can take two pills each day until you are on schedule, plus use an additional form of control along with the pill for the rest of the month. Or you can stop the pill and start a completely new pack of pills the next Tuesday. You must use another form of control with the pill for at least the first two weeks of the new pack. You?re ill and you have been vomiting or have diarrhea: You must use another form of control with the pill since the pill may not be fully absorbed during your illness. Continue to use the added control until the end of the cycle. Desire to become : Stop using the pill for one month before trying to become . Taking other medications: The control pill is less effective when you take the antibiotic Rifampin, epilepsy (seizure) drugs such as phenytoin, carbamazepine, phenobarbital, topiramate and some medications for HIV. Let your doctor know if you start taking any of these medications while on the pill. Symptoms to Notify Your Doctor with Immediately: Pain in your chest or legs Continuous blurred vision Severe headaches Slurred speech Tingling or weakness on one side of your body Shortness of breath Swelling of one leg Refills of Control Pills You need to see a doctor every year for a refill of your prescription. This is necessary in order that your health can be monitored closely while you are taking control pills. If your prescription should before your next scheduled appointment you can usually get a one month extension from your doctors office if you call during regular business hours about one week before you need to start the new package of pills. This allows the physician to refer to your chart for necessary health information. Allergies As of Date: 05/02/2024 (No Known Allergies) Date Reviewed: 05/02/2024 Reviewed by: Evi George MA - Fully Assessed Reason for Visit: New Patient [172] Menstrual Problem [67] Primary Visit Diagnosis:Menorrhagia with regular cycle [N92.0] Other Visit Diagnoses:Dysmenorrhea [N94.6] PCB (post coital bleeding) [N93.0] Encounter for initial prescription of contraceptive pills [Z30.011] Order(s):PROLACTIN [SQPROL] Order #: [id number] FUTURE COMPLETE BLOOD COUNT AND DIFFERENTIAL [SQCBCDIF] Order #: [id number] FUTURE IRON AND TIBC [SQIRON] Order #: [id number] FUTURE FERRITIN [SQFERR] Order #: [id number] FUTURE MAXX/TRICHOMONAS NAAT [SQCVTV] Order #: [id number]. #:[id number] BACTERIAL VAGINOSIS NAAT [SQBVAMP] Order #: [id number]. #:[id number] norgestimate 0.25 mg-ethinyl estradiol 35 mcg (SPRINTEC) 0.25-35 mg-mcg per tabletTake 1 tablet by mouth once daily.Disp: 84 tabletRfl: 3 Prescriptions as of 05/02/2024 - norgestimate 0.25 mg-ethinyl estradiol 35 mcg (SPRINTEC) 0.25-35 mg-mcg per tablet Take 1 tablet by mouth once daily. Problem List As Of Date: 05/02/2024 (None) Other instructions from your clinician: Oral Contraceptives: The Pill Beginning the Pill Pills come in either a 21 day pack or a 28 day pack. With the 21 day pack you will take one pill for 21 days then no pill for 7 days, during which time you will have what is known as withdrawal bleeding. The 28 day pack allows you to take a pill every day of the cycle with no interruptions. The first 21 pills are the pills with the active ingredients and the last 7 are the nonmedical pills (placebo) or they may contain iron. There will be bleeding during the week you are taking the nonmedical pills. The advantage to the 28 day pack is that you don?t have to keep track of when you stopped the pill. Unless otherwise instructed, you should start your pills the Tuesday following your first day of bleeding with your next period (if your period starts on a Tuesday, you should start pills the same day) Read your information packet that comes with the pills. Pill Benefits The pill is the most popular method of reversible control being used today. Millions of women rely on oral contraceptives as their control method. It is important to have an examination by your physician to determine if the pill is safe for you. There are several advantages associated with the pill: it is 97-98% effective; may improve acne; periods are more regular and less painful; there is less iron deficiency anemia in pill users. [facility] use is associated with a decreased incidence of ovarian and uterine cancer. There is also no evidence that the pill increases the incidence of any cancer. How Oral Contraceptives Work Oral contraceptives come in two varieties. One is the combination pill which contains both estrogen and progesterone. Combination pills are considered 98-99% effective in preventing . This pill comes in either monophasic, which delivers the same amount of estrogen and progesterone throughout the cycle; and triphasic, which try tries to mimic the normal hormone cycle by changing the levels of the hormones in the pills during the month. There is no real advantage to taking the one over the other. The other type of pill only contains progesterone. It is best used for women who can?t take estrogen. This type of pill is slightly less effective than the combination pill in preventing . Oral contraceptives prevent ovulation (release of an egg from the ovary) by suppressing the pituitary gland?s action. The pill does NOT prevent sexually transmitted disease. Obtaining a Prescription It is important to see your doctor before starting oral contraceptives so that you can have a full medical history taken and a physical examination given. Certain medical conditions may make the pill inappropriate for you, therefore it is very important to be honest and as complete as possible with the information you share with your doctor. The types of predisposing factors which would make the pill a poor choice of control would include: History of blood clots Stroke Serious liver disease or impaired liver function Unexplained vaginal bleeding or Cancer of the reproductive system Active gall bladder disease Hypertension Possible Side Effects It can take up to three months for your body to become adjusted to the pill. The more common side effects experienced at this time are: breakthrough spotting or bleeding, which is bleeding at any other time other than when you should be having a period; nausea or vomiting; breast tenderness; and mild fluid retention. There is no chcf weight gain with the use of the pill. Breakthrough bleeding is the most common complaint of new pill users. There is no way to predict who will have it and there is no way of preventing it. Breakthrough bleeding usually subsides on its own with no further treatment after the first three months of taking the pill. If these symptoms continue to occur after the first three months you should check with your physician to see if there is any physical cause and possibly change to another control pill. Problems: Missed 1 pill: Take 2 pills the next day. Missed 2 pills: Take 2 pills the next day and 2 pills the following day. Also use another form of control (condoms) along with the pill for the rest of the month. Missed 3 or more pills: You have two choices. You can take two pills each day until you are on schedule, plus use an additional form of control along with the pill for the rest of the month. Or you can stop the pill and start a completely new pack of pills the next Tuesday. You must use another form of control with the pill for at least the first two weeks of the new pack. You?re ill and you have been vomiting or have diarrhea: You must use another form of control with the pill since the pill may not be fully absorbed during your illness. Continue to use the added control until the end of the cycle. Desire to become : Stop using the pill for one month before trying to become . Taking other medications: The control pill is less effective when you take the antibiotic Rifampin, epilepsy (seizure) drugs such as phenytoin, carbamazepine, phenobarbital, topiramate and some medications for HIV. Let your doctor know if you start taking any of these medications while on the pill. Symptoms to Notify Your Doctor with Immediately: Pain in your chest or legs Continuous blurred vision Severe headaches Slurred speech Tingling or weakness on one side of your body Shortness of breath Swelling of one leg Refills of Control Pills You need to see a doctor every year for a refill of your prescription. This is necessary in order that your health can be monitored closely while you are taking control pills. If your prescription should before your next scheduled appointment you can usually get a one month extension from your doctors office if you call during regular business hours about one week before you need to start the new package of pills. This allows the physician to refer to your chart for necessary health information. Prescriptions ordered this encounter Disp Refills Start End NORGESTIMATE 0.25 MG-ETHINYL ESTRADI* 84 t* 3 05/02/2024 Route: ORAL Sig: Take 1 tablet by mouth once daily. Disposition: Return in about 4 months (around 08/30/2024) for Follow with ANDIE. Follow-up and Disposition History for Encounter Date Provider Department Center 05/02/2024 [id number] SMITH Tay Jaycob Encounter Status:Closed by EARLINE SMITH on 05/02/24 FEMALE PELVIS TRANSVAG Observed: 08/2023 2:10 PM Status: F Source: [facility] * * *Final Report* * * DATE OF EXAM: Jan 11 2024 2:10PM U 1060 - FEMALE PELVIS TRANSVAG / PROCEDURE REASON: multiple diagnoses * * * * Physician Interpretation * * * * EXAMINATION: TRANSVAGINAL AND LIMITED TRANSABDOMINAL FEMALE PELVIC ULTRASOUND CLINICAL HISTORY: Abnormal uterine bleeding TECHNIQUE: Sonography of the pelvis was performed by transvaginal and transabdominal (limited) techniques. Images were obtained and stored in a permanent archive. MQ: [facility]_2021 COMPARISON: None RESULT: Uterus: -Size: 7.6 x 4.0 x 5.4 cm -Orientation: Anteverted -Endometrial echo complex: Evaluation of the endometrium was adequate. No endometrial abnormality. The endometrial echo complex measured 1.6 cm. -Cervix: Unremarkable. -Adenomyosis assessment: There are no sonographic findings of adenomyosis. -Fibroids: There are no fibroids. Right Ovary: 3.3 x 1.5 x 2.4 cm - Normal sonographic appearance. Doppler imaging showed normal arterial and venous flow throughout the ovary. Left Ovary: 3.5 x 1.7 x 2.4 cm - Normal sonographic appearance. Doppler imaging showed normal arterial and venous flow throughout the ovary. Corpus luteum cyst Free Fluid: Trace free fluid in the cul-de-sac IMPRESSION: Trace free fluid in the cul-de-sac otherwise normal sonographic appearance of the female pelvis. Rotary Swaging Machine Operator: YAMILETH Transcribe Date/Time: Jan 13 2024 10:13P Dictated by : DIXON FORBES MD This examination was interpreted and the report reviewed and electronically signed by: DIXON FORBES MD on Jan 13 2024 10:15PM EST [id number] PROGRESS Observed: 01/11/2024 1:00 PM Status: COMPLETED Source: [facility] HNO ID: [id number] Author: BRITTNEY MCDONOUGH RDMS Service: ? Author Type: Auto [employer] Handler Type: Progress Notes Filed: 01/11/2024 14:11 Note Text: Radiology Service Progress Note PATIENT NAME: Armida Porras DATE OF SERVICE: January 11, 2024 TIME: 2:10 PM PATIENT IDENTITY VERIFICATION COMPLETED USING TWO (2) IDENTIFIERS: Name and Date of confirmed by patient verbally. FALL SCREENING: Has the patient had 2 falls in the last year or 1 fall with injury or currently using an Ambulatory Assistive Device (Walker, Cane, Wheelchair, Crutches, etc.)? No PATIENT GENDER DATA: Female. status: : No status: NO. PATIENT RELEVANT IMPLANT DATA REVIEWED: Not Applicable PATIENT PRESENTS WITH AN IMPLANTABLE OR ATTACHED FLUID PUMP OPERATOR: No RADIOLOGY DEPARTMENT: Ultrasound PERIPHERAL IV DATA: Not applicable SIGNED BY: Brittney Mcdonough RDMS January 11, 2024 2:10 PM CNPN Observed: 01/05/2024 12:00 AM Status: COMPLETED Source: [facility] Telephone (OBGYWM) CHIQUITAARMIDA ([id number]) 3 F Date Time Provider Department 01/05/24 SRINI WHARTON OBGYWM During your visit today, we recorded the following information about you: Earline Velasquez RDMS 01/05/2024 8:12 AM Signed Good morning Dr. Mercado, This pt was scheduled in radiology for her pelvic ultrasound, you saw her at the [facility]. I'm guessing we had sooner openings in radiology, would you mind her being scanned down here? If she can, please place a new order US FEMALE PELVIS TRANSVAG. Order I will have the PSS's reschedule her with Macarena. Thanks, [facility] Srini Wharton MD 01/05/2024 8:15 AM Signed That is fine- can you remind me what the dx was on her pelvic us rx? Was it AUB or pelvic pain? Srini Wharton MD 01/05/2024 1:18 PM Signed ordered Gerson Nieto RN 01/05/2024 1:27 PM Signed Order linked to appt. Gerson Nieto RN Allergies As of Date: 01/05/2024 (Not on File) Date Reviewed: Never Reviewed Reason for Visit: Orders [681] Primary Visit Diagnosis:Abnormal uterine bleeding (AUB) [N93.9] Other Visit Diagnosis:Dyspareunia, female [N94.10] Order(s):US FEMALE PELVIS TRANSVAG [[id number]] Order #: [id number] FUTURE Problem List As Of Date: 01/05/2024 (None) Encounter Status:Closed by GERSON NIETO on 01/05/24 TSH SERPL-ACNC Collected: 3:45 PM Status: F Source: [facility] Order Comment: Specimen Type : BLOOD SPECIMEN Ordering Facility: [facility] Address: ATTN: [place] [address] TYPE CODE TESTS RESULT OUT OF RANGE REFERENCE UNITS LAB 3016-3(LOINC) TSH SerPl-aCnc 1.760 0.510-4.300 mIU/L Result Comment: If the patie nt is , TSH reference range varies by gestational period: First Trimester (weeks 9-12): 0.180-2.990 mIU/L Second Trimester: 0.110-3.980 mIU/L Third Trimester: 0.480-4.710 mIU/L Chandana Coates et al. A Practical Approach for the Verifications and Determination of Site- and Trimester-Specific Reference Intervals for Thyroid Function tests in . Thyroid, 2019:29:3:412-420. Nas E, et al. 2017 Guidelines of the [place] Thy[employer] Association for the Diagnosis and Management of Thyroid Disease during and the . Thyroid, 2017:27:3:315-389. Reference ranges were not locally established for this patient's age group. The normal values are based on the following source: Lucrecia W, Elyssa Craig. Reference Ranges for Adults and Children: Pre-analytical Considerations. [facility] Performed By: #### 3016-3 ## ## [facility] CLIA [id number] [address] [place] [address] [place] TRACH+GC DNA SPEC QL KEON+PROBE Collected: 12/27/2023 2:00 PM Status: F Source: [facility] Order Comment: Specimen Type : SWAB Ordering Facility: [facility] Address: ATTN: [place] [address] TYPE CODE TESTS RESULT OUT OF RANGE REFERENCE UNITS LAB 67818-7([facility] ) N gonorrhoea rRNA Spec Ql KEON+probe Negative for Neisseria gonorrhoeae by amplification Negative for Neisseria gonorrhoeae by amplification LAB 00821-9([facility] ) C trach rRNA Spec Ql KEON+probe Negative for Chlamydia trachomatis by amplification Negative for Chlamydia trachomatis by amplificaton Performed By: #### 62423-1 # ### [facility] CLIA [id number] [address] [place] [address] [facility] OF [place] ALLERGIES DATE TYPE / CODE NAME / CODE REACTION SEVERITY SOURCE 10/10/2009 DRUG INGREDI/[id number](S NOMED CT) GLUTEN INTOLERANCE [facility] ENCOUNTERS ADMIT/DISCHARGE ACCOUNT NUMBER ADMITTING ENCOUNTER CLASS LOC ATION SOURCE 10/17/2024/ 5 [id number] Ambulatory [facility] HospitalBuild ing:SYNC [facility] 09/03/2024/ 5 [id number] Ambulatory [facility] HospitalBuild ing:WMOB [facility] 08/11/2024/ 5 [id number] Ambulatory [facility] HospitalBuild ing:WOLB [facility] 07/17/2024 [id number] Ambulatory [employer] HospitalBuild ing:LDLB [facility] 07/17/2024/ 5 [id number] Ambulatory [employer] HospitalBuild ing:AGFAMPL2 [facility] 07/06/2024/ 5 [id number] Ambulatory [facility] HospitalBuild ing:WOLB [facility] 06/25/2024/ 5 [id number] Ambulatory [facility] HospitalBuild ing:ENWSTR [facility] 05/03/2024/ 5 [id number] Ambulatory [employer] HospitalBuild ing:LDLB [facility] 05/03/2024/ 5 [id number] Ambulatory [employer] HospitalBuild ing:AGFAL2 [facility] 05/02/2024/ 5 [id number] Ambulatory [facility] HospitalBuild ing:WMOB [facility] 01/11/2024/ 4 [id number] Ambulatory [facility] HospitalBuild ing:WOUS [facility] 12/27/2023/ 4 [id number] Ambulatory [facility] HospitalBuild ing:WOLB [facility] [id number] Ambulatory Building:Unkn own [facility] PAYERS ENCOUNTER GUARANTOR PAYER SUBSCRIBER SOURCE 10/17/2024 Primary Insuranc e:[facility] MEDICAIDPolicy Number: [id number] Date:4541-68-27Vviv Name:Pablo GILLERROL: [id number] [place] [address] [facility] 09/03/2024 Primary Insuranc e:[facility] MEDICAIDPolicy Number: [id number] Date:6508-90-44Fdph Name:Pablo AQUINOEDOB: [id number] [place] [address] [facility] 08/11/2024 Primary Insuranc e:[facility] [facility] MEDICAIDPolicy Number: [id number] Date:8306-94-50Kjzv Name:Pablo GILLOB: [id number] [place], [place] [address] [place] [address] 07/17/2024 Primary Insuranc e:[employer] MEDICAIDPolicy Number: [id number] Date:2705-72-00Uwxf Name:Pablo GILLOB: [id number] [facility] [place], [place] [id number] [place] [address] 07/17/2024 Primary Insuranc e:[employer] MEDICAIDPolicy Number: [id number] Date:1144-79-49Wust Name:Pablo GILLOB: [id number] [facility] [place], [place] [address] [place] [address] 07/06/2024 Primary Insuranc e:[employer] [facility] MEDICAIDPolicy Number: [id number] Date:3447-51-64Uvje Name:Pablo AQUINOEDOB: [id number] [place] [address] [facility] 06/25/2024 Primary Insuranc e:[employer] MEDICAIDPolicy Number: [id number] Date:6070-52-25Apex Name:Pablo AQUINOEDOB: [id number] [place] [address] [facility] 05/03/2024 Primary Insuranc e:[employer] MEDICAIDPolicy Number: [id number] Date:1964-79-78Zyzs Name:Pablo GILLOB: [id number] [facility] [place], [place] [address] [place] [address] 05/03/2024 Primary Insuranc e:[employer] [facility] MEDICAIDPolicy Number: [id number] Date:4939-15-35Etyn Name:Pablo LAY JAIROOB: [id number] [place] [address] [facility] 05/02/2024 Primary Insuranc e:[employer] MEDICAIDPolicy Number: [id number] Date:0637-52-00Onkw Name:Pablo LAY JAIROOB: [id number] [place] [address] [facility] 01/11/2024 Primary Insuranc e:[employer] [facility] MEDICAIDPolicy Number: [id number] Date:7498-46-99Raoi Name:Pablo LAY JAIROOB: [id number] [place] [address] [facility] 12/27/2023 Primary Insuranc e:[place] [facility] MEDICAIDPolicy Number: [id number] Date:5242-99-03Hizt Name:Pablo GILLOB: [id number] [place] [address] [facility]
--- OUTSIDE RECORDS SUMMARY | 2024-10-17 09:13 | XMS RPT_ITS ---
Author Name Auto Generated Organization OH[facility] Care Team Providers Care Seamer Operator Name Role Phone SAROJ MICHAUD Attending Unavailable [...] Care Unavailable MORAIMA AVALOS Attending Unavaila ble MIELNA MICHAUDLENE M Referring Unavailable KEILY, SAROJ M Primary Care Unavailable EARLINE SMITH Attending Unavailable SRINI WHARTON Referring Unavail able MILENA MICHAUDLENE M Primary Care Unavailable KEILY, SAROJ M Primary Care Unavailable EARLINE SMITH Attending Unavailable PROBLEMS DATE TYPE CONDITION / CODE ATTENDING STATUS [facility] 09/03/2024 Active Follow Up / UNK(Unknown) EARLINE SMITH Active [facility] 07/17/2024 Active Syncope and jigar apse / R55(ICD-10) SAROJ MICHAUD Active [facility] 07/17/2024 Active Screening for li pid disorders / Z13.220(ICD-10) SAROJ MICHAUD Active [facility] 07/17/2024 Active Pain of toe of r ight foot / M79.674(ICD-10) SAROJ MICHAUD Active [facility] 07/17/2024 Active [place] of toe / L84(ICD-10) ARNIE MICHAUD Active [facility] 07/06/2024 Active Menorrhagia with regular cycle / N92.0(ICD-10) NA Active [facility] 06/25/2024 Active Thyroid function study abnormality / R94.6(ICD-10) MORAIMA AVALOS Active [facility] 05/03/2024 Active Arthralgia of ri ght wrist / M25.531(ICD-10) NA [facility] 05/03/2024 Active Chronic pain of both knees / M25.561(ICD-10) NA Active [facility] 05/03/2024 Active Chronic pain of both knees / M25.562(ICD-10) NA [facility] 05/03/2024 Active Chronic pain of both knees / G89.29(ICD-10) [facility] 05/03/2024 Active Chronic bilatera l low back pain without sciatica / M54.50(ICD-10) [facility] 05/03/2024 Active Chronic bilatera l low back pain without sciatica / G89.29(ICD-10) NA [facility] 05/03/2024 Active Cold intolerance / R68.89(ICD-10) NA [facility] 05/03/2024 Active Fatigue, unspeci fied type / R53.83(ICD-10) NA [facility] 05/03/2024 Active Encounter for ne reening for diabetes mellitus / Z13.1(ICD-10) [facility] 05/03/2024 Active Vitamin D defici ency / E55.9(ICD-10) NA [facility] 05/03/2024 Active Special screenin g examination for viral disease / Z11.59(ICD-10) NA [facility] 05/03/2024 Active Screening for HI V (human immunodeficiency virus) / Z11.4(ICD-10) NA [facility] 01/11/2024 Active Abnormal uterine bleeding (AUB) / N93.9(ICD-10) NA [facility] 01/11/2024 Active Dyspareunia, fem francesco / N94.10(ICD-10) NA [facility] 12/27/2023 Active Hemorrhage in ut erus / N93.9(ICD-10) NA [facility] PROCEDURES No Procedure Records Found RESULTS PROGRESS Observed: 10/17/2024 9:20 AM Status: COMPLETED Source: [facility] HNO ID: [id number] Author: JORGE A GARIBAY RN Service: ? [...] Observed: 10/17/2024 9:15 AM Status: COMPLETED Source: [facility] Office Visit (SYNCMN) ARMIDA PORRAS ([id number]) 3 F Date Time Provider Department 10/17/24 9:15 AM SYNCOPE OPD NURSE SYNCMN During your visit today, we recorded the following information about you: Jorge A Garibay RN 10/18/2024 6:48 AM Signed UNIVERSAL PROTOCOL / SAFETY CHECKLIST Procedure to be performed: Ashley for Syncope and Autonomic Disorders: TILT Sign [...] Diagnosis:Syncope and collapse [R55] Order(s):SALINE LOCK DISCONTINUE [9188297] Order #: [id number]: 1 INTERMITTENT PERIPHERAL DEVICE ([place]) [4204691] Order #: [id number]: 1 Prescriptions as of 10/18/2024 - calcium phosphate dibas/vit D3 (VITAMIN D, WITH CALCIUM, ORAL) Take by mouth. - norgestimate 0.25 mg-ethinyl estradiol 35 mcg (SPRINTEC) 0.25-35 mg-mcg per tablet Take 1 tablet by mouth once daily. Problem List As Of Date: 10/17/2024 (None) Encounter Status:Closed by JORGE A GARIBAY on 10/18/24 PROGRESS Observed: 09/03/2024 2:47 PM Status: COMPLETED Source: [facility] ID: [id number] Author: EARLINE SMITH APRN.CNM Service: ? Author Type: Breaker Operator Type: Progress Notes Filed: 09/16/2024 06:23 Note [...] Observed: 09/03/2024 2:45 PM Status: COMPLETED Source: [facility] Office Visit (OBGYWM) ARMIDA PORRAS ([id number]) 3 F Date Time Provider Department 09/03/24 [...] Collected: 09/2024 11:28 AM Status: F Source: [facility] Order Comment: Specimen Type : BLOOD SPECIMEN Ordering Facility: [facility] Address: [address] [place] [address] TYPE CODE TESTS RESULT OUT OF RANGE REFERENCE UNITS LAB 2345-7(LOINC) Glucose SerPl-[facility] 83 74-99 mg/dL Result Comment: The [place] Diabetes Association (ADA) provides guidance for cutoff [...] Standards of Medical Care in Diabetes 2016, [place] Diabetes Association. Diabetes Care. 2016.39(Suppl 1). LAB 3094-0(LOINC) BUN SerPl-mCnc 8 7-21 mg/ dL LAB 2160-0(LOINC) Creat SerPl-mCnc 0.96 0.58-0.96 mg/dL LAB 2951-2(LOINC) Sodium SerPl-sCnc 141 136-144 mmol/L LAB 2823-3(LOINC) Potassium SerPl-sCnc 4.4 3.7-5.1 mmol/L LAB 2075-0(LOINC) Chloride SerPl-sCnc 105 98-107 mmol/L LAB 2028-9(LOINC) CO2 SerPl-sCnc 25 22-30 mmo l/L LAB 58608-6(LOINC) Anion Gap SerPl-sCnc 11 8-15 mmol/L LAB 15028-3(LOINC) Calcium SerPl-mCnc 9.5 8.5-10.2 mg/dL LAB 37559-2(LOINC) Creatinine + eGFR Pnl SerPlBld 87 >=60 [...] accurately reflect actual GFR. Performed By: #### 48903-2, 71803-0 #### [facility] CLIA [id number] [address] [place], [place] [address] [address] [place] LIPID 1996 PNL SERPL Collected: 025 11:28 AM Status: F Source: [facility] Order Comment: Specimen Type : BLOOD SPECIMEN Ordering Facility: [facility] Address: [address] [place] [address] TYPE CODE TESTS RESULT OUT OF RANGE [...] is calculated using the Kirkpatrick-NIH equation. LAB 40616-9(LOINC) NonHDLc SerPl-mCnc 92 <130 mg/dL Result Comment: <130 mg/dL, Optimal 130-159 mg/dL, Near optimal/above optimal 160-189 mg/dL, Borderline high 190-219 mg/dL, High >219 mg/dL, Very high Secondary prevention optimal non HDL Cholesterol levels are recommended to be <100 mg/dL LAB 94985-5(LOINC) VLDLc SerPl Calc-mCnc 18 <30 mg/dL LAB 9830-1(LOINC) Cholest/HDLc SerPl 2.53 <5.10 LAB 88294-8(LOINC) LDLc/HDLc SerPl 1.18 <2.54 Result Comment: Reference: 1. National Cholesterol Education Program ATP III Guideline At-A-Glance Quick Desk Reference: National Heart, Lung, and Blood [place]. National Institutes of Health. 2001: NIH Publication [...] and Adolescents: National Heart, Lung and Blood [place]. Pediatrics. 2011:128(Suppl 5):W040-900. LAB FT FASTING TIME 10 hrs Performed By: #### 49659-1, 45776-9 #### [facility] CLIA [id number] [address] [place] [address] [place] DEPRECATED HGB A1C BLD Collected: 08/11 11:28 AM Status: F Source: [facility] Order Comment: Specimen Type : BLOOD SPECIMEN Ordering Facility: [facility] Address: [address] [place] [address] TYPE CODE TESTS RESULT OUT OF RANGE REFERENCE UNITS LAB 4548-4(LOINC) HbA1c MFr Bld 5.1 4.3-5.6 % Result Comment: [place] Jennifer betes Association guidelines indicate that patients with HgbA1c in the range 5.7-6.4% are at increased risk for development of diabetes, and intervention by lifestyle modification may be beneficial. HgbA1c greater or equal to 6.5% is considered diagnostic of diabetes. LAB 42197-9(LOINC) Est. average glucose Bld gHb Est-mCnc 100 mg/dL Result Comment: eAG: (Estima jocelynn average glucose) is a calculated value from HgbA1c and is shipping services sales representative of the average blood glucose level in the last 2-3 month period. Performed By: #### 53841-2 # ### [facility] CLIA [id number] [address] [place] [address] [place] CNPN Observed: 08/02/2024 12:00 AM Status: COMPLETED Source: [facility] Telephone (AGINTMLW) ARMIDA PORRAS ([id number]) 3 F Date Time Provider Department 08/02/24 SAROJ MICHAUD AGINTMLDangelo During your visit today, we recorded the following information about you: Karishma Muñoz LPN 08/02/2024 8:01 AM Signed ----- Message from Gloria Beasley sent at 07/31/2024 1:50 PM EDT ----- Regarding: FW: 4CINSTITUTE/INTM AG LODI/SAROJ MICHAUD/CALLBACK ----- Message ----- From: Thom Zambrano Sent: 07/31/2024 12:55 PM EDT To: Roxie Magaña [employer] Pool; # Subject: 4CCAREN/NIKKIM AG LODI/SAROJ MICHAUD/CA# Subject Line Format: Medicine / Saroj Michaud APRN.HANDKERCHIEF CUTTER / [Issue] Select Department Name For Pool Routing Assistance: FAMP AG LODI => AG FAMP/INTM LODI APPT [facility] [[id number]] Patient: Armida Porras Date of : 2005 Primary Care Provider: Saroj Michaud APRN.CHARLEEN The reason I am contacting the office is: Call Back - Patient is requesting a call back from Saroj Michaud, about heart monitor. Person calling if other than patient: n/a Best contact number: [phone] Thank you, Thom Zambrano July 31, 2024 12:51 PM Karishma Muñoz LPN 08/02/2024 8:03 AM Signed Left message for pt to call office. Review of chart does not look like pt has had heart monitor done yet. Karishma Muñoz LPN Allergies As of Date: 08/02/2024 Noted Allergy Reaction GLUTEN 10/10/2009 5 - Intolerance Date Reviewed: 07/17/2024 Reviewed by: Saroj Michaud APRN.HANDKERCHIEF CUTTER - Fully Assessed Reason for Visit: Returning [...] Observed: 07/17/2024 11:00 AM Status: COMPLETED Source: [facility] Office Visit (AGINTMLW) CHIQUITA,ARMIDA ([id number]) 3 F Date Time Provider Department 07/17/24 11:00 AM SAROJ MICHAUD AGINTMLW During your visit today, we recorded the following information about you: Temperature Pulse Blood pressure 97.8 degrees 71/minute 106/58 Saroj Michaud APRN.HANDKERCHIEF CUTTER 07/18/2024 7:22 AM Signed This note was [...] asymptomatic. - Recent lab work reviewed by overedge sewer; no abnormalities noted. - Reports cold intolerance [...] Abs Lymph 1.00 - 4.00 k/uL 1.41 [place]ankton% % 8.6 Abs [place] <0.87 k/uL 0.32 Eosin% % 2.2 Abs [...] of toe of right foot (M79.674) 4. [place] of toe (L84) - Exam reveals a [...] which included preparing to see the patient, [id number]-vwcf patient care, completing clinical documentation, obtaining and/or reviewing separately obtained history, performing a medically appropriate examination, counseling and educating the patient/family/caregiver, and ordering medications, tests, or procedures. Allergies As of Date: 07/17/2024 Noted Allergy Reaction GLUTEN 10/10/2009 5 - Intolerance Date Reviewed: 07/17/2024 Reviewed by: Saroj Michaud APRN.HANDKERCHIEF CUTTER - Fully Assessed Reason for Visit: pots symptoms [Other] Cmt: Follow up from last appointment. Wart on right foot for the last month and a half Primary Visit Diagnosis:Syncope and collapse [R55] Other Visit Diagnoses:Noe's thyroiditis [E06.3] Pain of toe of right foot [M79.674] [place] of toe [L84] Screening for lipid disorders [Z13.220] Order(s):TILT TABLE EVALUATION [14590MHE] Order #: [id number]: 1 EVENT MONITOR [2983290] Order #: [id number]: 1 LIPID PANEL, FASTING [SQLIPB] Order #: [id number] FUTURE BASIC METABOLIC PANEL [SQBMP] Order #: [id number] FUTURE HEMOGLOBIN A1C [HAYNF1O] Order #: [id number] FUTURE CONSULT TO PODIATRY [9034] Order #: [id number]: 1 FUTURE Prescriptions as of 07/18/2024 - [...] Observed: 07/17/2024 11:00 AM Status: [facility]TED [id number] Author: SAROJ MICHAUD APRN.[facility] Service: ? Author Type: Nurse Practitioner [...] asymptomatic. - Recent lab work reviewed by overedge sewer; no abnormalities noted. - Reports cold intolerance [...] Abs Lymph 1.00 - 4.00 k/uL 1.41 [place]% % 8.6 Abs [place] <0.87 k/uL 0.32 Eosin% % 2.2 Abs [...] of toe of right foot (M79.674) 4. [place] of toe (L84) - Exam reveals a [...] which included preparing to see the patient, [id number] patient care, completing clinical documentation, obtaining and/or reviewing separately obtained history, performing a medically appropriate examination, counseling and educating the patient/family/caregiver, and ordering medications, tests, or procedures. CBC W AUTO DIFF BLD Collected: 07/06/2024 12:02 PM S tatus: F Source: [facility] Order Comment: Specimen Type : BLOOD SPECIMEN Ordering Facility: [facility] Address: [address] [place] [address] TYPE CODE TESTS RESULT OUT OF RANGE [...] Auto 27.5 26.0-34.0 p g LAB 786-4([facility]) MCHC RBC Auto-mCnc 32.7 30.5-36.0 g/dL LAB 26092-1([facility]) RDW RBC-Rto 12.9 11.5-15.0 % LAB 777-3([facility]) Platelet # Bld Auto 260 150-400 k/uL LAB 51176-5([facility]) PMV Bld Auto 10.1 9.0-12.7 fL LAB 770-8([facility]) Neutrophils/leuk NFr Bld Auto 51.0 % LAB 751-8([facility]) Neutrophils # Bld Auto 1.90 1.45-7.50 k/uL LAB 736-9([facility]) Lymphocytes/leuk NFr Bld Auto 37.9 % LAB 731-0([facility]) Lymphocytes # Bld Auto 1.41 1.00-4.00 k/uL LAB 5905-5([facility]) Monocytes/leuk NFr Bld Auto 8.6 % LAB 742-7([facility]) Monocytes # Bld Auto 0.32 <0.87 k/uL LAB 713-8([facility]) Eosinophil/leuk NFr Bld Auto 2.2 % LAB 711-2([facility]) Eosinophil # Bld Auto 0.08 <0.46 k/uL LAB 706-2([facility]) Basophils/leuk NFr Bld Auto 0.0 % LAB 704-7([facility]) Basophils # Bld Auto <0.03 <0.11 k/uL LAB 88452-9([facility]) Imm Granulocytes/rosie k NFr Bld Auto 0.3 % LAB 19188-8([facility]) Imm Granulocytes # Bld Auto <0.03 <0.10 k/uL LAB 32983-2([facility]) nRBC/100 WBC Bld-Rto 0.0 /100 WBC LAB 771-6([facility]) nRBC # Bld Auto <0.01 <0.01 k/u L LAB 19690-7([facility]) Differential method Bld Auto Performed By: #### 17756-9, 4537-7 #### [facility] CLIA [id number] [address] [id number] [address] [place] ESR BLD QN WESTRGRN Collected: 07/07/19 12:02 PM Status: F Source: [facility] Comment: Specimen Type : BLOOD SPECIMEN Ordering Facility: [facility] Address: [address] [place] [address] TYPE CODE TESTS RESULT OUT OF RANGE REFERENCE UNITS LAB 4537-7(LOINC) ESR Bld Qn Westrgrn 2 0-20 mm/hr Performed By: #### 98608-9, 4537-7 #### [facility] CLIA [id number] [address] [place] [address] [place] IRON+TIBC PNL SERPL Collected: 07/07/19 12:02 PM Status: F Source: [facility] Comment: Specimen Type : BLOOD SPECIMEN Ordering Facility: [facility] Address: [address] [place] [address] TYPE CODE TESTS RESULT OUT OF RANGE REFERENCE UNITS LAB 2498-4(LOINC) Iron SerPl-mCnc 69 41-186 ug/dL LAB 2500-7(LOINC) TIBC SerPl-mCnc 459 High 232-386 ug/dL LAB 69021-0(LOINC) Iron/TIBC SerPl-sRto 15.0 15.0-57.0 % Performed By: #### 2842-3, 2 276-4, 53571-9 #### [facility] CLIA [id number] [address] [place] [address] [place] FERRITIN SERPL-MCNC Collected: 07/07/19 12:02 PM Status: F Source: [facility] Comment: Specimen Type : BLOOD SPECIMEN Ordering Facility: [facility] Address: [address] [place] [address] TYPE CODE TESTS RESULT OUT OF RANGE REFERENCE UNITS LAB 2276-4(LOINC) Ferritin SerPl-mCnc 15.4 14.7-205.1 ng/mL Performed By: #### 2842-3, 2 276-4, 56227-4 #### [facility] CLIA [id number] [address] [place] [address] PROLACTIN SERPL-MCNC Collected: 025 12:02 PM Status: F Source: [facility] Order Comment: Specimen Type : BLOOD SPECIMEN Ordering Facility: [facility] Address: [address] [place] [address] TYPE CODE TESTS RESULT OUT OF RANGE REFERENCE UNITS LAB 2842-3(LOINC) Prolactin SerPl-mCnc 23.2 4.4-33.8 ng/mL Result Comment: Prolactin te st is performed using the [employer] Electrochemiluminescence Immunoassay method. Results obtained with different methods or kits cannot be used interchangeably. Performed By: #### 2842-3, 2 276-4, 08533-1 #### [facility] CLIA [id number] [address] [place] [address] PROGRESS Observed: 06/25/2024 8:20 AM Status: COMPLETED Source: [facility] HNO ID: [id number] Author: MORAIMA AVALOS MD Service: ? Author Type: Physician Type: Progress Notes Filed: 06/25/2024 08:50 Note Text: [facility] Initial Clinic Visit Note CONSULTING PROVIDER: Saroj Michaud APRN. HANDKERCHIEF CUTTER My final recommendations will be communicated back [...] Trejo, et al. 2017 Guidelines of the [place] Thyroid Association for the Diagnosis and Management [...] Moderate Moraima Avalos MD Endocrinology Associate Staff [facility] AND Surgery [facility] Endocrinology and Metabolism [place] [phone] CNOV Observed: 06/25/2024 8:00 AM Status: COMPLETED Source: [facility] Office Visit (ENWSTR) ARMIDA PORRAS ([id number]) 3 F Date Time Provider Department 06/25/24 8:00 AM MORAIMA AVALOS ENWSTR During your visit today, we recorded the following information about you: Temperature Pulse Respiration Blood pressure 98.6 degrees 52/minute 12/minute 98/64 Weight Height Last Period 72.5 kg 1.753 m 06/24/24 Moraima Avalos MD 06/25/2024 8:50 AM Addendum [facility] Initial Clinic Visit Note CONSULTING PROVIDER: Saroj Michaud APRN. HANDKERCHIEF CUTTER My final recommendations will be communicated back [...] Trejo et al. 2017 Guidelines of the [place] Thyroid Association for the Diagnosis and Management [...] Moderate Moraima Avalos MD Endocrinology Associate Staff [facility] AND Surgery [facility] Endocrinology and Metabolism [place] [phone] Moraima Avalos MD 06/25/2024 8:31 AM Signed Please check thyrpoid function tests annually or sooner if new symptoms appear Focusing on healthy lifestyle can be helpful overall. Selenium might be beneficial in some cases to avoid progression Referring Provider: SAROJ MICHAUD [[id number]] Allergies As of Date: 06/25/2024 Noted Allergy Reaction GLUTEN 10/10/2009 5 - Intolerance Date Reviewed: 06/25/2024 Reviewed by: Sasha Fuller MA - Fully Assessed Reason for Visit: Thyroid Problem [110] Cmt: Reporting cold intolerance,fatigue Visit Diagnoses:Thyroid function study abnormality [R94.6] Cold intolerance [R68.89] Fatigue, unspecified type [R53.83] Order(s):CONSULT TO ENDOCRINOLOGY [900] Order #: [id number]: 1 Prescriptions as of 06/25/2024 - magnesium [...] 05/03/2024 4:0 8 PM Status: F Source: [facility] Order Comment: Specimen Type : BLOOD SPECIMEN Ordering Facility: [facility] Address: [address] [place] [address] TYPE CODE TESTS RESULT OUT OF RANGE REFERENCE UNITS LAB 8099-4(LOINC) Thyroperoxidase Ab SerPl-aCnc 10.0 High <5.6 IU/mL Result Comment: Thyroid Fernandez xidase Antibody test is used as an aid in diagnosis of autoimmune thyroid disease. Clinical correlation is required. Performed By: #### MICRO ### # [facility] CLIA [id number] [address] [place] [address] OF [place] COMP METAB 2000 PNL SERPL Collected: 4:08 PM Status: F Source: [facility] Order Comment: Specimen Type : BLOOD SPECIMEN Ordering Facility: [facility] Address: [place], [place] [id number] TYPE CODE TESTS RESULT OUT OF RANGE REFERENCE UNITS LAB 2885-2(LOINC) Prot SerPl-mCnc 7.0 6.3-8.0 g/dL LAB 1751-7(LOINC) Albumin SerPl-mCnc 4.5 3.9-4.9 g/dL LAB 59268-5(LOINC) Calcium SerPl-mCnc 9.0 8.5-10.2 mg/dL LAB 1975-2(LOINC) Bilirub SerPl-mCnc 0.7 0.2-1.3 mg/dL LAB 6768-6(LOINC) ALP SerPl-cCnc 50 34-123 U/L LAB 48034-2(LOINC) AST SerPl w P-5'-P-cCnc 15 13-35 U/L LAB 1743-4(LOINC) ALT SerPl w P-5'-P-cCnc 18 7-38 U/L LAB 2345-7(LOINC) Glucose SerPl-mCnc 77 74-99 mg/dL Result Comment: The [place] Diabetes Association (ADA) provides guidance for cutoff [...] Standards of Medical Care in Diabetes 2016, [place] Diabetes Association. Diabetes Care. 2016.39(Suppl 1). LAB 3094-0(LOINC) BUN SerPl-mCnc 12 7-21 mg/ dL LAB 2160-0(LOINC) Creat SerPl-mCnc 0.95 0.58-0.96 mg/dL LAB 2951-2(LOINC) Sodium SerPl-sCnc 139 136-144 mmol/L LAB 2823-3(LOINC) Potassium SerPl-sCnc 3.9 3.7-5.1 mmol/L LAB 2075-0(LOINC) Chloride SerPl-sCnc 103 98-107 mmol/L LAB 8-9(LOINC) CO2 SerPl-sCnc 26 22-30 mmo l/L LAB 38283-5(LOINC) Anion Gap SerPl-sCnc 10 8-15 mmol/L LAB 33826-5(LOINC) Creatinine + eGFR Pnl SerPlBld 88 >=60 [...] By: #### 3016-3, 2 4322-10, 1987-07 #### [facility] CLIA [id number] [address] [place] [address] [facility] CRP SERPL-MCNC Collected: 05/03/2024 4:08 PM Status: F Source: [facility] Order Comment: Specimen Type : BLOOD SPECIMEN Ordering Facility: [facility] Address: [address] [place] [address] TYPE CODE TESTS RESULT OUT OF RANGE REFERENCE UNITS LAB 1987-([facility]) CRP SerPl-mCnc <0.3 <0.9 mg/dL Performed By: #### 3016-3, 2 8, 1987-07 #### [facility] CLIA [id number] [address] [place] [address] [facility] TSH SERPL-ACNC Collected: 4:08 PM Status: F Source: [facility] Order Comment: Specimen Type : BLOOD SPECIMEN Ordering Facility: [facility] Address: [address] [place] [address] TYPE CODE TESTS RESULT OUT OF RANGE [...] E, et al. 2017 Guidelines of the [place] Thyroid Association for the Diagnosis and Management of Thyroid Disease during and the . Thyroid, 2017:27:3:315-389. Performed By: #### 3016-3, 2 4323-8, 1987- #### [facility] CLIA [id number] [address] [place] [address] STATES OF [facility] T4 FREE SERPL-MCNC Collected: 05/03/2024 4:08 PM Sta tus: F Source: [facility] Order Comment: Specimen Type : BLOOD SPECIMEN Ordering Facility: [facility] Address: [address] [place] [address] TYPE CODE TESTS RESULT OUT OF RANGE REFERENCE UNITS LAB 3024-7(LOINC) T4 Free SerPl-mCnc 1.1 0.9-1.7 ng/dL Performed By: #### 3053-6, 3 #### [facility] CLIA [id number] [address] [place] [address] T3 SERPL-MCNC Collected: 05/03/2024 4:08 PM Status: F Source: [facility] Order Comment: Specimen Type : BLOOD SPECIMEN Ordering Facility: [facility] Address: [address] [place] [address] TYPE CODE TESTS RESULT OUT OF RANGE REFERENCE UNITS LAB 3053-6(LOINC) T3 SerPl-mCnc 98 79-165 ng/d L Performed By: #### 3053-6, 3 024-7 #### [facility] CLIA [id number] [address] HIV1+2 AB SERPL QL IA Collected: 2024 4:08 PM Status: F Source: [facility] Order Comment: Specimen Type : BLOOD SPECIMEN Ordering Facility: [facility] Address: [address] [place] [address] TYPE CODE TESTS RESULT OUT OF RANGE REFERENCE UNITS LAB 95797-8(LOINC) HIV 1+2 Ab+HIV1 p24 Ag SerPl Ql IA Nonreactive Nonreactive Result Comment: [place] Rev. Co de 3701.243(E): This information has [...] has moved from [employer] XP to [employer] 8000 effective December 08, 2021. Please note there may be a change in the reporting units and/or reference range. LAB 64141-2(LOINC) HIV 1 AND 2 Ab SerPlBld IA.rapid Result Comment: Test not ind icated. LAB 80941-5(LOINC) HIV IA algorithm interp SerPlBld-Imp Result Comment: No evidence of HIV-1 or HIV-2 infection. Should recent infection be suspected, repeat testing may be considered 2-3 weeks after this draw. Performed By: #### 84068-2 # ### [facility] CLIA [id number] [address] 25(OH)D3 SERPL-MCNC Collected: 05/03/19 4:08 PM Status: F Source: [facility] Order Comment: Specimen Type : BLOOD SPECIMEN Ordering Facility: [facility] Address: [address] [place] [address] TYPE CODE TESTS RESULT OUT OF RANGE REFERENCE UNITS LAB 1989-3(LOINC) 25(OH)D3 SerPl-mCnc 23.7 Low >=30.0 ng/mL Result Comment: Classificati on of 25 OH Vitamin D status: Deficiency: <= 20.0 ng/ml. Insufficiency: 21.0-29.0 ng/ml. Sufficiency: >= 30.0 ng/ml. Performed By: #### 1989-3 ## ## [facility] CLIA [id number] [address] HCV AB SER QL Collected: 4:08 PM Status: F Source: [facility] Order Comment: Specimen Type : BLOOD SPECIMEN Ordering Facility: [facility] Address: [address] [place] [address] TYPE CODE TESTS RESULT OUT OF RANGE REFERENCE UNITS LAB 04254-9([facility]) HCV Ab Ser Ql Nonreactive Nonreactive Result Comment: The result s uggests no evidence of active infection with Hepatitis C virus. Should recent infection be suspected, repeat testing may be considered 4- 6 weeks after this draw. Performed By: #### 13710-1 # ### [facility] CLIA [id number] [address] PROGRESS Observed: 05/03/2024 2:40 PM Status: COMPLETED Source: [facility] HNO ID: [id number] Author: SAROJ MICHAUD APRN.HANDKERCHIEF CUTTER Service: ? Author Type: Nurse Practitioner Type: Progress Notes Filed: 05/06/2024 19:49 Note Text: This note was created using [email or web address]. Subjective Armida Porras is a 19 year [...] worse it is 7/10. She did see VULNERABILITY ASSESSMENT ANALYST yesterday on 05/02/24 for complaints of [...] R53.83 - normal exam. She did see VULNERABILITY ASSESSMENT ANALYST who ordered. Labs. 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 4. Arthralgia of right wrist - [...] which included preparing to see the patient, mtoj-yk-xgit patient care, completing clinical documentation, obtaining and/or reviewing separately obtained history, performing a medically appropriate examination, counseling and educating the patient/family/caregiver, and ordering medications, tests, or procedures. CNOV Observed: 05/03/2024 2:40 PM Status: COMPLETED Source: [facility] Office Visit (AGINTMLW) ARMIDA PORRAS ([id number]) 3 F Date Time Provider Department 05/03/24 2:40 PM SAROJ MICHAUD During your visit today, we recorded the following information about you: Pulse Respiration Blood pressure Weight 80/minute 18/minute 116/60 71.8 kg Height 1.753 m Saroj Michaud APRN.CNP 05/06/2024 7:49 PM Signed This note was created using [employer]. Subjective Armida Porras is a 19 year [...] worse it is 7/10. She did see VULNERABILITY ASSESSMENT ANALYST yesterday on 05/02/24 for complaints of [...] R53.83 - normal exam. She did see VULNERABILITY ASSESSMENT ANALYST who ordered. Labs. 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 4. Arthralgia of right wrist - [...] which included preparing to see the patient, gpas-ki-ejda patient care, completing clinical documentation, obtaining and/or [...] virus) [Z11.4] Order(s):C-REACTIVE PROTEIN [SQCRP] Order #: [id number] FUTURE SEDIMENTATION RATE, WESTERGREN [SQWSR] Order #: [id number] FUTURE THYROID STIMULATING HORMONE [SQTSH] Order #: [id number] FUTURE T3 [SQT3] Order #: [id number] FUTURE T4 FREE/FREE THYROXINE [SQFT4] Order #: [id number] FUTURE THYROID PEROXIDASE ANTIBODY [SQMICRO] Order #: [id number] FUTURE COMPREHENSIVE METABOLIC PANEL [SQCMP] Order #: [id number] FUTURE VITAMIN D 25 HYDROXY [SQVITD] Order #: [id number] FUTURE HEPATITIS C ANTIBODY IA WITH CONFIRMATION [NVHWVZ1Z] Order #: [id number] FUTURE HIV 1/2 COMBO WITH REFLEX TO DIFFERENTIATION [SQHIV12] Order #: [id number] FUTURE SEDIMENTATION RATE, WESTERGREN [SQWSR] Order #: [id number] FUTURE Prescriptions as of 05/06/2024 - norgestimate 0.25 mg-ethinyl estradiol 35 mcg (SPRINTEC) 0.25-35 mg-mcg per tablet Take 1 tablet by mouth once daily. Problem List As Of Date: 05/03/2024 (None) Disposition: Return in about 4 weeks (around 05/31/2024) for WAE, passing out, abd pain, slow metabolism. Follow-up and Disposition History for Encounter Date Provider Department Center 05/03/2024 [id number] MICHAUD AGINTMLW [address] Encounter Status:Closed by SAROJ MICHAUD on 05/06/24 CNCO Observed: 05/03/2024 12:00 AM Status: COM PLETED Source: [facility] Letter Text MAXX/TRICHOMONAS NAAT Collected: 2:40 PM Status: F Source: [facility] Order Comment: Specimen Type : SWAB Ordering Facility: [facility] Address: [address] [place] [address] TYPE CODE TESTS RESULT OUT OF RANGE REFERENCE UNITS LAB 79018-9(LOINC ) Maxx DNA Vag Ql KEON+probe Not detected Not detected Result Comment: The Maxx species group target includes C. albicans, C. tropicalis, C. parapsilosis, and C. dubliniensis. LAB 07329-1(LOINC ) C glabrata RNA Vag Ql KEON+probe Not detected Not detected LAB 34246-2(LOINC ) T vaginalis DNA Spec Ql KEON+probe Not detected Not detected Performed By: #### CVTV, BVA MP #### [facility] CLIA [id number] [address] [place] [address] STATES [facility] BACTERIAL VAGINOSIS NAAT Collected: 2:40 PM Status: F Source: [facility] Order Comment: Specimen Type : SWAB Ordering Facility: [facility] Address: [address] [place] [address] TYPE CODE TESTS RESULT OUT OF RANGE REFERENCE UNITS LAB 11469-9(LOINC) BV bacteria rRNA Vag Ql KEON+probe Not detected Not detected Performed By: #### CVTV, BVA MP #### [facility] CLIA [id number] [address] [place] [address] OF [facility] PROGRESS Observed: 05/02/2024 2:05 PM Status: COMPLETED Source: [facility] HNO ID: [id number] Author: EARLINE SMITH APRN.CNM Service: ? Author Type: Breaker Operator Type: Progress Notes Filed: 05/02/2024 14:49 Note [...] for her as she normally has a bisque placer flow. Not using anything for control and has never taken anything in the past. Sexually active. Declines STD testing today. Admits to pain with intercourse and not able to discern what is the cause. This will then cause bleeding at times. OB History No obstetric history on file. Classification Inspector History LMP: 04/08/2024, Having periods Age at Menarche: 11 Age at First : Age at Menopause: Classification Inspector History Comments: Sexual Activity: Yes; Male Contraception: [...] Observed: 05/02/2024 2:00 PM Status: COMPLETED Source: [facility] Office Visit (OBGYWM) ARMIDA PORRAS ([id number]) 3 F Date Time Provider Department 05/02/24 [...] for her as she normally has a bisque placer flow. Not using anything for control and has never taken anything in the past. Sexually active. Declines STD testing today. Admits to pain with intercourse and not able to discern what is the cause. This will then cause bleeding at times. OB History No obstetric history on file. Classification Inspector History LMP: 04/08/2024, Having periods Age at Menarche: 11 Age at First : Age at Menopause: Classification Inspector History Comments: Sexual Activity: Yes; Male Contraception: [...] less iron deficiency anemia in pill users. MCC use is associated with a decreased incidence [...] and mild fluid retention. There is no fdc weight gain with the use of the [...] contraceptive pills [Z30.011] Order(s):PROLACTIN [SQPROL] Order #: [id number] FUTURE COMPLETE BLOOD COUNT AND DIFFERENTIAL [SQCBCDIF] Order #: [id number] FUTURE IRON AND TIBC [SQIRON] Order #: [id number] FUTURE FERRITIN [SQFERR] Order #: [id number] FUTURE MAXX/TRICHOMONAS NAAT [SQCVTV] Order #: [id number]. #:[id number] BACTERIAL VAGINOSIS NAAT [SQBVAMP] Order #: [id number]. #:[id number] norgestimate 0.25 mg-ethinyl estradiol 35 mcg (SPRINTEC) [...] less iron deficiency anemia in pill users. MCC use is associated with a decreased incidence [...] and mild fluid retention. There is no fdc weight gain with the use of the [...] for Encounter Date Provider Department Center 05/02/2024 [id number] SMITH Tay Jaycob Encounter Status:Closed by EARLINE SMITH on 05/02/24 FEMALE PELVIS TRANSVAG Observed: 08/2023 2:10 PM Status: F Source: [facility] * * *Final Report* * * DATE [...] and stored in a permanent archive. MQ: [facility]_2021 COMPARISON: None RESULT: Uterus: -Size: 7.6 [...] normal sonographic appearance of the female pelvis. Av Specialist: YAMILETH Transcribe Date/Time: Jan 13 2024 10:13P Dictated by : DIXON FORBES MD This examination was interpreted and the report reviewed and electronically signed by: DIXON FORBES MD on Jan 13 2024 10:15PM EST [id number] PROGRESS Observed: 01/11/2024 1:00 PM Status: COMPLETED Source: [facility] HNO ID: [id number] Author: BRITTNEY MCDONOUGH RDMS Service: ? Author Type: Dioramist Type: Progress Notes Filed: 01/11/2024 14:11 Note [...] PATIENT PRESENTS WITH AN IMPLANTABLE OR ATTACHED OPTOMETRY ASSISTANT: No RADIOLOGY DEPARTMENT: Ultrasound PERIPHERAL IV DATA: Not applicable SIGNED BY: Brittney Mcdonough RDMS January 11, 2024 2:10 PM CNPN Observed: 01/05/2024 12:00 AM Status: COMPLETED Source: [facility] Telephone (OBGYWM) CHIQUITAARMIDA ([id number]) 3 F Date Time Provider Department 01/05/24 [...] reschedule her with Macarena. Thanks, [facility] Velasquez [facility] Srini Wharton MD 01/05/2024 8:15 AM Signed [...] Diagnosis:Dyspareunia, female [N94.10] Order(s):US FEMALE PELVIS TRANSVAG [5244047] Order #: [id number] FUTURE Problem List As Of Date: 01/05/2024 (None) Encounter Status:Closed by GERSON NIETO on 01/05/24 TSH SERPL-ACNC Collected: 3:45 PM Status: F Source: [facility] Order Comment: Specimen Type : BLOOD SPECIMEN Ordering Facility: [facility] Address: ATTN: [place] [address] TYPE CODE TESTS RESULT OUT OF RANGE [...] E, et al. 2017 Guidelines of the [place] [employer] for the Diagnosis and Management of Thyroid Disease during and the . Thyroid, 2017:27:3:315-389. Reference ranges were not locally established for this patient's age group. The normal values are based on the following source: Lucrecia W, Elyssa Craig. Reference Ranges for Adults and Children: Pre-analytical Considerations. [employer] [facility] Performed By: #### 3016-3 ## ## [facility] CLIA [id number] [address] [place] [address] [place] TRACH+GC DNA SPEC QL KEON+PROBE Collected: 12/27/2023 2:00 PM Status: F Source: [facility] Order Comment: Specimen Type : SWAB Ordering Facility: [facility] Address: ATTN: [place] [address] TYPE CODE TESTS RESULT OUT OF RANGE REFERENCE UNITS LAB 98497-4([facility] ) N gonorrhoea rRNA Spec Ql KEON+probe Negative for Neisseria gonorrhoeae by amplification Negative for Neisseria gonorrhoeae by amplification LAB 75949-3([facility] ) C trach rRNA Spec Ql KEON+probe Negative for Chlamydia trachomatis by amplification Negative for Chlamydia trachomatis by amplificaton Performed By: #### 21050-2 # ### [facility] CLIA [id number] [address] [place] [address] [facility] [place] ALLERGIES DATE TYPE / CODE NAME / CODE REACTION SEVERITY SOURCE 10/10/2009 DRUG INGREDI/[id number](S NOMED CT) GLUTEN INTOLERANCE [facility] ENCOUNTERS ADMIT/DISCHARGE ACCOUNT NUMBER ADMITTING ENCOUNTER CLASS LOC ATION SOURCE 10/17/2024/ 5 [id number] [facility] 09/03/2024/ 5 [id number] [facility]WMOB [facility] 08/11/2024/ 5 [id number] [facility]OL[facility] 07/17/2024 [id number] [facility] 07/17/2024/ 5 [id number] [facility] 07/06/2024/ 5 [id number] [facility] 06/25/2024/ 5 [id number] [facility]ENWSTR [facility] 05/03/2024/ 5 [id number] [facility] 05/03/2024/ 5 [id number] [facility] 05/02/2024/ 5 [id number] [facility] 01/11/2024/ 4 [id number] [facility]WOUS [facility] 12/27/2023/ 4 [id number] [facility]OL[facility] [id number] Ambulatory Building:Unkn own [facility] PAYERS ENCOUNTER GUARANTOR PAYER SUBSCRIBER SOURCE 10/17/2024 Primary Insuranc e:[facility] MEDICAIDPolicy Number: [id number] Date:0517-18-21Nfwj Name:Pablo GILLERROL: [id number] [place] [address] [facility] 09/03/2024 Primary Insuranc e:[facility] MEDICAIDPolicy Number: [id number] Date:8786-47-27Ymdo Name:Pablo AQUINOEDOB: [id number] [place] [address] [facility] 08/11/2024 Primary Insuranc e:[facility] MEDICAIDPolicy Number: [id number] Date:0435-65-81Dauj Name:Pablo GILLOB: [id number] [place], [place] [address] [place] [address] 07/17/2024 Primary Insuranc e:[facility] MEDICAIDPolicy Number: [id number] Date:1141-89-22Alcc Name:Pablo GILLOB: [id number] [facility] [place], [place] [address] [place] [address] 07/17/2024 Primary Insuranc e:[facility] MEDICAIDPolicy Number: [id number] Date:0507-49-75Zhpt Name:Pablo GILLOB: [id number] [facility] [place], [place] [address] [place] [address] 07/06/2024 Primary Insuranc e:[facility] MEDICAIDPolicy Number: [id number] Date:5152-41-31Qtqr Name:Pablo AQUINOEDOB: [id number] [place] [address] [facility] 06/25/2024 Primary Insuranc e:[facility] MEDICAIDPolicy Number: [id number] Date:4477-48-53Jtnc Name:Pablo AQUINOEDOB: [id number] [place] [address] [facility] 05/03/2024 Primary Insuranc e:[facility] MEDICAIDPolicy Number: [id number] Date:7545-08-42Dsxn Name:Pablo GILLOB: [id number] [facility] [place], [place] [address] [place] [address] 05/03/2024 Primary Insuranc e:[place] [facility] MEDICAIDPolicy Number: [id number] Date:0972-72-30Uwtk Name:Pablo LAY JAIROOB: [id number] [place] [address] [facility] 05/02/2024 Primary Insuranc e:[facility] MEDICAIDPolicy Number: [id number] Date:3492-87-23Newo Name:Pablo LAY JAIROOB: [id number] [place] [address] [facility] 01/11/2024 Primary Insuranc e:[place] [facility] MEDICAIDPolicy Number: [id number] Date:3911-81-31Yohj Name:Pablo LAY JAIROOB: [id number] [place] [address] [facility] 12/27/2023 Primary Insuranc e:[place] [facility] MEDICAIDPolicy Number: [id number] Date:3112-03-57Pjqx Name:Pablo GILLOB: [id number] [place] [address] [facility]
== END | disposition home or self-care (01) ==
LOC: LABSPEC 16:30
PROVIDERS: Referring Provider Otolaryngology; Visit Provider Otolaryngology
DX: J02.9 Acute pharyngitis, unspecified (principal)
CPT/HCPCS: 87070; 87077

== ENCOUNTER → 2025-01-17 | Outpatient (CLI) | payer MEDICAID, SELFPAY | END | disposition home or self-care (01) | LOC: LABSPEC 15:12 | DX: J02.9 Acute pharyngitis, unspecified (principal) | CPT/HCPCS: 87070 ==